=== PATIENT | male | born 1940 | race Caucasian/White ===

== ENCOUNTER 2022-09-15 21:17 | Inpatient (IN) | payer MEDICARE, SELFPAY ==
[2022-09-15 22:00] VITALS: BP 155/84; PULSE 107; RESP 18; TEMP 36.5; O2SAT 94; BMI 24.7
--- NOTE | 2022-09-15 22:11 | NURSING ---
Patient arrived to Unit at approximately 8:34pm
--- NOTE | 2022-09-16 03:47 | PCA ---
Patient called out for urinal and was changed. ang care completed and patient pulled up n bed
[2022-09-16] MEDS: ARIPiprazole 2 MG Tablet PO (05:08)
[2022-09-16] MEDS: Cholecalciferol (VIT D3) 25 MCG TABLET (1,000 UNITS) PO (05:09)
[2022-09-16] MEDS: Nystatin Powder 15gm Bottle 1 APPLIC TOPICAL ×2 (05:09→18:33)
[2022-09-16] MEDS: APIXABAN 5 MG TABLET PO ×2 (05:09→18:33)
[2022-09-16] MEDS: Lisinopril 20 MG Tablet PO (05:09)
[2022-09-16] MEDS: Menthol/Lanolin/Calamine/Znox 113 GM Tube 1 APPLIC TOPICAL ×2 (05:09→18:33)
--- NOTE | 2022-09-16 05:28 | NURSING ---
PICC line lumens flushed. Purple lumen flushed with some difficulty, blood return noted. Red lumen flushed easily, blood return noted. Will continue to monitor.
--- NOTE | 2022-09-16 06:04 | PCA ---
patient was changed @ 5:30 and used the urinal
[2022-09-16 06:06] LABS: Absolute Lymphocyte Count 1.96 X10^3/uL (0.83-4.51); Basophil# 0.08 X10^3/uL; Basophil% 0.9 % (0-1); Eosinophil# 0.29 X10^3/uL; Eosinophils% 3.2 % (0-5); Hematocrit 34.2 % (40-54); Hemoglobin 10.8 g/dL (13.0-16.5); Lymphocyte # 1.96 X10^3/ul (0.83-4.51); Lymphocyte % 21.5 % (19-41); Mean Corp Hgb Conc 31.6 g/dL (32-36); Mean Corpuscular Hgb 30.3 pg (27.0-32.0); Mean Corpuscular Volume 96.1 fL (80-94); Mean Platelet Vol. 8.6 fl (6.2-12.0); Monocyte# 0.79 X10^3/uL; Monocyte% 8.7 % (0-10); NRBC Flagged by Analyzer 0 % (0-5); Neutrophil # 5.95 X10^3/uL (2.7-7.7); Neutrophil % 65.3 % (47-70); Platelet Count 341 K/mm3 (150-450); RBC Distribution Width CV 14.2 % (11.6-14.6); RBC Distribution Width SD 49.7 fl (35.1-43.9); Red Blood Count 3.56 M/mm3 (4.6-6.2); White Blood Count 9.1 K/mm3 (4.4-11.0)
[2022-09-16 06:19] LABS: Erythrocyte Sedimentation Rate 48 mm/hr (0-20)
[2022-09-16 06:35] LABS: Vancomycin, Trough Level 16.6 ug/mL (5.0-15.0)
[2022-09-16 07:40] LABS: Anion Gap 6 (5-15); BUN 8 mg/dL (7-18); BUN/Creat Ratio 16.3 RATIO (10-20); Chloride 104 mmol/L (98-107); Creatinine, Serum 0.49 mg/dL (0.70-1.30); EST Glomerular Filtration Rate 173 mL/min (>60); Est Glom Filt Rate - Afr Amer 209 mL/min (>60); Estimated Creatinine Clearance 62.51 ml/min; Glucose 96 mg/dL (74-106); Potassium 3.6 mmol/L (3.5-5.1); Sodium Level 141 mmol/L (136-145)
--- NOTE | 2022-09-16 07:52 | HP.PCM_ITS ---
[facility] - General General Date of Admission: 09/15/22 Date of Service: 09/16/22 Chief Complaint: Here for rehabilitation, intravenous antibiotics. HPI Narrative DESIRE JONES, is a 82 Male who presents with followin09/04/2022 Admit to [facility] for change in mental status, urinary tract infection. Diagnosed with MRSA bacteremia, severe L3-L5 canal stenosis. Osteomyelitis/discitis, right psoas/iliopsoas myositis. ID recommended CACHORRO. Echo negative for vegetation, CACHORRO too high risk secondary to severe muscle dystrophy. Vancomycin IV per ID. Neurosurgery recommended no surgery. Continue IV antibiotics per ID. Mycoplasma negative, Respiratory panel negative, covid19 negative, flu A/B negative, RSV negative, MRSA PCR negative. 09/06/2025 Blood cultures positive MRSA. 09/07/2021 Blood cultures negative to date. PICC line ordered, Vancomycin 2gm IV Q24H x 6 weeks. 09/08/2022 MRI brain pending acute toxic encephalopathy. 09/10/2022 Confusion improved. 09/13/2022 Confusion resolved. 09/14/2022 PICC line with superficial vein thrombosis. New PICC inserted. 09/16/2022 Admit to TCU with debility, here for rehabilitation, intravenous antibiotics, prior to discharge home. [facility] Medical History (Updated 09/16/22 @ 07:[address] Rosendo Rebolledo MD) Alzheimer disease Debility Encephalopathy Hyperlipidemia Hypertension Lumbar discitis MRSA bacteremia Muscular dystrophy Pulmonary embolism Sepsis Thrombocytopenia Allergy/AdvReac Type Severity Reaction Status Date / Time No Known Allergies Allergy Verified 09/15/22 21:45 Social History (Updated 09/16/22 @ 07:[address] Rosendo Rebolledo MD) household members: spouse Smoking Status: Former smoker alcohol intake: never substance use type: does not use ROS Constitutional Constitutional: Denies chills, fever(s) or weight gain ENT HEENT: Denies headache(s), nasal congestion or nasal discharge Cardiovascular Cardiovascular: Denies chest pain or palpitations Respiratory/Chest Respiratory/Chest: Denies cough, excessive phlegm production or shortness of breath with exertion Gastrointestinal Gastrointestinal: Denies abdominal pain, nausea or vomiting Genitourinary Genitourinary: Denies dysuria Musculoskeletal Musculoskeletal: Denies joint pain or joint swelling Integumentary Integumentary: Denies rash or wounds Neurologic Neurologic: Denies focal weakness, numbness or tingling Psychiatric Psychiatric: Denies anxiety, auditory hallucinations, depression, homicidal ideation or suicidal ideation Vital Signs Vital Signs Vital Signs: 09/15/22 22:00 09/15/22 22:00 Temperature 97.7 F L Temperature Source Oral Pulse Rate 107 H 107 H Pulse Rhythm Regular Pulse Strength Normal (2+) Respiratory Rate 18 18 Respiratory Effort Normal Non-Labored Respiratory Depth Normal Respiratory Pattern Normal Blood Pressure 155/84 H Blood Pressure Mean 107 Blood Pressure Source Monitor Blood Pressure Position Supine Blood Pressure Location Left Arm Pulse Ox 94 94 Oxygen Delivery Method Room Air Room Air Weight Weight: 82.8 kg Body Mass Index (BMI) 24.7 Physical Exam Const alert General Appearance: cooperative HEENT normocephalic Eyes PERRL and EOMs intact bilaterally Neck supple, no JVD and no carotid bruits Resp normal respiratory effort, normal air movement and clear to auscultation bilaterally Cardio regular rate and regular rhythm GI normal to inspection, nondistended, normoactive bowel sounds, non-tender and non-distended Extremity normal capillary refill Extremity Narrative: Right upper extremity PICC line. General Extremity: Negative for edema Skin no rashes or lesions noted General Skin Exam: no breakdown Psych affect normal Appearance: appropriate Results Lab / Micro Data Result Diagrams: 09/16/22 05:30 09/16/22 05:30 Labs: Laboratory Results - last 24 hr 09/16/22 05:30: WBC 9.1, RBC 3.56 L, Hgb 10.8 L, Hct 34.2 L, MCV 96.1 H, MCH 30.3, MCHC 31.6 L, RDW Std Deviation 49.7 H, RDW Coeff of Berny 14.2, Plt Count 341, MPV 8.6, Immature Gran % (Auto) 0.400, Neut % (Auto) 65.3, Lymph % (Auto) 21.5, Butts % (Auto) 8.7, Eos % (Auto) 3.2, Baso % (Auto) 0.9, Absolute Neuts (auto) 6.0, Absolute Lymphs (auto) 1.96, Nucleated RBC % 0, ESR 48 H 09/16/22 05:30: Sodium 141, Potassium 3.6, Chloride 104, Carbon Dioxide 31.0, Anion Gap 6, BUN 8, Creatinine 0.49 L, Estim Creat Clear Calc 62.51, Est GFR (MDRD) Af Amer 209, Est GFR (MDRD) Non-Af 173, BUN/Creatinine Ratio 16.3, Glucose 96, Calcium 8.0 L 09/16/22 05:30: Vancomycin Trough 16.6 H Micro: Microbiology 09/16/22 02:40 Nasal Secretion SARS-CoV-2 Antigen (Rapid) - Final Assessment & Plan Assessment/Plan (1) Debility: (2) Sepsis: (3) MRSA bacteremia: (4) Lumbar discitis: (5) Encephalopathy: (6) Muscular dystrophy: (7) Alzheimer disease: (8) Hypertension: (9) Hyperlipidemia: (10) Pulmonary embolism: (11) Thrombocytopenia: PLAN: Plan 82 year old male with below past medical history hospitalized for sepsis, MRSA bacteremia secondary to lumbar discitis, surgery not recommended, admitted to TCU with debility, here for rehabilitation, strengthening, intravenous antibiotics, prior to discharge home. * Debility - PT/OT. * Pain - Tylenol 1000mg q6h prn pain (1-10). * Bowel - senna/colace 2 tablets bid, Dulcolax 10mg pr x 1 prn, MOM 30ml po x 1 prn. * Adult immunization - Administer pneumonia vaccine, covid19 vaccine, flu vaccine as appropriate. * DVT prophylaxis - Not necessary, on Eliquis. * Superficial vein thrombosis - Eliquis 5mg bid. * Alzheimer Disease - Donepezil 10mg qhs, Abilify 2mg daily, stable chronic twisting frame fixer use, GDR not recommended. * Iron deficiency anemia - Iron sulfate 325mg every other day, Vitamin C 1000mg daily. * Hypertension - Lisinopril 20mg daily. * Insomnia - Melatonin 3mg qhs prn. * Skin irritation - Calmoseptine topical bid. * Nutrition - MVI daily. * Tinea Corporis - Nystatin powder topical bid. * Hyperlipidemia - [place] 3 1gm daily. * MRSA bacteremia/Lumbar discitis - Vancomycin 1500mg iv q24h, consult Dr. Sigala. * Vitamin D deficiency - D3 25mcg daily.
[2022-09-16] MEDS: Omega-3 Acid Ethyl Esters 1 GM Capsule PO (08:14)
[2022-09-16] MEDS: Multivitamins,Therapeutic Tablet 1 TABLET PO (08:14)
--- NOTE | 2022-09-16 08:42 | PCM.RX.CS ---
Consult Pharmacy has been consulted to manage selected antiobiotic: Vancomycin Type of Consult: New start Suspected Infection: Bacteremia Prior Doses of Antibiotics Received/Current Regimen: Last dose reported was 1500mg iv 0n 2.14.23 @0600 at another facility. Labs: Sodium 141 mmol/L (136-145) 09/16/22 05:30 Potassium 3.6 mmol/L (3.5-5.1) 09/16/22 05:30 Chloride 104 mmol/L (98-107) 09/16/22 05:30 Carbon Dioxide 31.0 mmol/L (21.0-32.0) 09/16/22 05:30 Anion Gap 6 (5-15) 09/16/22 05:30 BUN 8 mg/dL (7-18) 09/16/22 05:30 Creatinine 0.49 mg/dL (0.70-1.30) L 09/16/22 05:30 Est GFR (MDRD) Af Amer 209 mL/min (>60) 09/16/22 05:30 Est GFR (MDRD) Non-Af 173 mL/min (>60) 09/16/22 05:30 BUN/Creatinine Ratio 16.3 RATIO (10-20) 09/16/22 05:30 Glucose 96 mg/dL (74-106) 09/16/22 05:30 Vancomycin Trough 16.6 ug/mL (5.0-15.0) H 09/16/22 05:30 Microbiology: Microbiology 09/16/22 02:40 Nasal Secretion SARS-CoV-2 Antigen (Rapid) - Final Weight used for dosin.8 kg Estimated Creatinine Clearance: 73 ml/min Goal Trough: 15-20 mcg/mL Pharmacy Plan for Drug Dosing: Using an adjusted Cr of 0.9 based on age, CrCl was calculated to be ~73 ml/min. A random level was obtained this AM since patient was on vancomycin at another facility. Level was 16.6 and in therapeutic range. Will begin a dosing schedule of 1250mg iv q12h per policy. New trough level ordered for before 4th dose of new regimen. Pharmacy Service will continue to monitor and adjust dosing as required. Follow-Up Labs: Trough Vancomycin - 2.16.23 @2130 before 2200 dose
--- NOTE | 2022-09-16 09:13 | NURSING ---
dr dobson paged via answering service per dr mathew consult order.
[2022-09-16] MEDS: Senna/Docusate Sodium 1 Tablet 2 TABLET PO ×2 (09:25→18:33)
[2022-09-16] MEDS: Ascorbic Acid 500 MG Tablet 1000 MG PO (09:25)
[2022-09-16] MEDS: Tuberculin,Purif.prot.deriv. 50 TU/ML Vial 0.100000000000000006 ML ID (09:26)
[2022-09-16] MEDS: 0.9% Saline Lock 10 ML Syringe IV (09:27)
[2022-09-16 09:37] VITALS: PULSE 103; RESP 16; O2SAT 94
--- NOTE | 2022-09-16 09:42 | PCM.PN.DRR ---
TCU RX Drug Regimen Review Subjective: TCU Admission. 82 YOM presented to outside ER with change in mental status/UTI. Hospitalized for sepsis, MRSA bacteremia secondary to lumbar discitis, surgery not recommended. Admitted to TCU with debility for strengthening, IV antibiotics and rehabilitation. Objective: Allergies No Known Allergies Allergy (Verified 09/15/22 21:45) Current Medications Generic Name Dose Route Start Last Admin Trade Name Freq PRN Reason Stop Dose Admin Acetaminophen 1,000 mg 09/16/22 08:09 Acetaminophen 500 Mg Tablet PO Q6H PRN PRN Pain Score 1-10 Apixaban 5 mg 09/16/22 06:00 09/16/22 05:09 Apixaban 5 Mg Tablet PO 10/27/22 23:59 5 mg BID JOEY Administration Aripiprazole 2 mg 09/16/22 06:00 09/16/22 05:08 Aripiprazole 2 Mg Tablet PO 2 mg DAILY JOEY Administration Ascorbic Acid 1,000 mg 09/16/22 08:00 09/16/22 09:25 Ascorbic Acid 500 Mg Tablet PO 1,000 mg BREAKFAST JOEY Administration Bisacodyl 10 mg 09/16/22 08:08 Bisacodyl 10 Mg Suppository RC X1 PRN Constipation Calamine/Phenol 1 applic 09/16/22 06:00 09/16/22 05:09 Menthol/Lanolin/Calamine/Znox 113 Gm Tube TOPICAL 1 applic BID JOEY Administration Protocol Cholecalciferol 25 mcg 09/16/22 06:00 09/16/22 05:09 Cholecalciferol (Vit D3) 25 Mcg Tablet (1,000 Units) PO 25 mcg DAILY JOEY Administration Donepezil HCl 10 mg 09/16/22 22:00 Donepezil Hcl 10 Mg Tablet PO QHS JOEY Ferrous Sulfate 325 mg 09/17/22 08:00 Ferrous Sulfate 325 Mg Tablet PO QODAY@0800 JOEY Heparin Sodium (Beef Lung) 50 units 09/15/22 23:07 Heparin Pf Lock 10 Units/Ml 50 Units/5 Ml Syringe IV UD PRN PICC Line Heparin Flush Heparin Sodium (Beef Lung) 50 units 09/16/22 08:00 Heparin Pf Lock 10 Units/Ml 50 Units/5 Ml Syringe IV UD PRN PICC Line Heparin Flush Sodium Chloride 250 mls @ 15 mls/hr 09/16/22 04:41 IV .[id number] PRN Saline Flush Sodium Chloride 250 mls @ 15 mls/hr 09/16/22 04:41 IV .[id number] PRN Additional IVPB Infusion Vancomycin IV-PHARMACY TO DOSE 500 mls @ 250 mls/hr 09/16/22 08:11 1 each/ Sodium Chloride IV PRN PRN Rx to Dose Protocol Vancomycin HCl 1,250 mg/ 275 mls @ 167 mls/hr 09/16/22 10:00 Sodium Chloride IV Q12H JOEY Lisinopril 20 mg 09/16/22 06:00 09/16/22 05:09 Lisinopril 20 Mg Tablet PO 20 mg DAILY JOEY Administration Magnesium Hydroxide 30 ml 09/16/22 08:08 Magnesium Hydroxide 30 Ml Udc PO X1 PRN Constipation Melatonin 3 mg 09/15/22 22:05 Melatonin 3 Mg Tablet PO QHS PRN PRN INSOMNIA Multivitamins 1 tablet 09/16/22 08:00 09/16/22 08:14 Multivitamins,Therapeutic Tablet PO 1 tablet BREAKFAST JOEY Administration Nystatin 1 applic 09/16/22 06:00 09/16/22 05:09 Nystatin Powder 15gm Bottle TOPICAL 1 applic BID JOEY Administration Protocol [id number] Ethyl Esters 1 gm 09/16/22 08:00 09/16/22 08:14 [place]-3 Acid Ethyl Esters 1 Gm Capsule PO 1 gm DAILYCM JOEY Administration Senna/Docusate Sodium 2 tablet 09/16/22 08:15 09/16/22 09:25 Senna/Docusate Sodium 1 Tablet PO 2 tablet BID JOEY Administration Sodium Chloride 10 - 40 ml 09/15/22 23:07 09/16/22 09:27 0.9% Saline Lock 10 Ml Syringe IV 20 ml UD PRN Administration Open End PICC Flush Sodium Chloride 10 - 40 ml 09/15/22 23:07 0.9 % Nacl (Sterile) Posiflush 10 Ml IV UD PRN Port access or dressing change Sodium Chloride 10 - 40 ml 09/16/22 08:00 0.9% Saline Lock 10 Ml Syringe IV UD PRN Open End PICC Flush Sodium Chloride 10 - 40 ml 09/16/22 08:00 0.9 % Nacl (Sterile) Posiflush 10 Ml IV UD PRN Port access or dressing change Tuberculin PPD 0.1 ml 09/16/22 10:00 09/16/22 09:26 Tuberculin,Purif.Prot.Deriv. 50 Tu/Ml Vial ID 09/16/22 10:01 0.1 ml X1 ONE Administration Tuberculin PPD 0.1 ml 09/23/22 10:00 Tuberculin,Purif.Prot.Deriv. 50 Tu/Ml Vial ID 09/23/22 10:01 X1 ONE Problem List (Last Updated 09/16/22 @ 07:[address] Rosendo Rebolledo MD) Thrombocytopenia (Acute) Pulmonary embolism (Acute) Hyperlipidemia (Acute) Hypertension (Chronic) Alzheimer disease (Acute) Muscular dystrophy (Acute) Encephalopathy (Acute) Lumbar discitis (Acute) MRSA bacteremia (Acute) Sepsis (Acute) Debility (Acute) Vital Signs Temp Pulse Resp BP Pulse Ox O2 Del Method 97.7 F L 107 H 18 155/84 H 94 Room Air 09/15/22 22:00 09/15/22 22:00 09/15/22 22:00 09/15/22 22:00 09/15/22 22:00 09/15/22 22:00 Oxygen Delivery Method Room Air Weight: 82.8 kg Body Mass Index (BMI) 24.7 Sodium 141 mmol/L (136-145) 09/16/22 05:30 Potassium 3.6 mmol/L (3.5-5.1) 09/16/22 05:30 Chloride 104 mmol/L (98-107) 09/16/22 05:30 Carbon Dioxide 31.0 mmol/L (21.0-32.0) 09/16/22 05:30 Anion Gap 6 (5-15) 09/16/22 05:30 BUN 8 mg/dL (7-18) 09/16/22 05:30 Creatinine 0.49 mg/dL (0.70-1.30) L 09/16/22 05:30 Est GFR (MDRD) Af Amer 209 mL/min (>60) 09/16/22 05:30 Est GFR (MDRD) Non-Af 173 mL/min (>60) 09/16/22 05:30 BUN/Creatinine Ratio 16.3 RATIO (10-20) 09/16/22 05:30 Glucose 96 mg/dL (74-106) 09/16/22 05:30 Vancomycin Trough 16.6 ug/mL (5.0-15.0) H 09/16/22 05:30 Assessment/Plan: 1. Pain: acetaminophen 1000mg PO Q6H PRN pain 1-10. Resident has not had any doses so far. Please continue to monitor for increased pain and PRN usage. 2. Bowel: senna/docusate 2T PO BID, bisacodyl 10mg RC x1 PRN constipation and MOM 30mL PO x1 PRN constipation. Resident has not had any PRN doses. Please continue to monitor for constipation and PRN usage. Last documented BM 09/16. 3. MRSA bacteremia/lumbar discitis: vancomycin pharmacy to dose. ID consulted. Please continue to monitor for S/S of infection, renal function and diarrhea. Pharmacy will continue to monitor vancomycin levels and renal function. Please consider adding stop date after ID has seen the resident. 4. Superficial vein thrombosis: apixaban 5mg PO BID. Please continue to monitor for S/S of bleeding and hemoglobin (last 10.8g/dL). 5. Iron deficiency anemia: ferrous sulfate 325mg PO every other day and ascorbic acid 1000mg PO breakfast. Please continue to monitor hemoglobin, dark stools and constipation. 6. Hypertension: lisinopril 20mg PO daily. Please continue to monitor BP (last 155/84), potassium (last 3.6mmol/L), renal function and cough. 7. Hyperlipidemia: omega 3 1gm PO daily. Please consider ordering a lipid panel if clinically appropriate as this resident does not have one in the chart. Thanks. 8. Insomnia: melatonin 3mg PO QHS PRN insomnia. Please continue to monitor for insomnia and PRN usage. No doses given so far. 9. Vitamin D deficiency/nutrition: cholecalciferol 25mcg PO daily and multivitamin 1T PO breakfast. Please consider ordering a vitamin D level if clinically appropriate. Resident does not have one in the chart. Thanks. Assessment/Plan for indications treated with psychotropic medications: 1. Alzheimer disease: donepezil 10mg PO QHS, aripiprazole 2mg PO daily. Please see physician note regarding GDR for aripiprazole. Please continue to monitor for dementia/delirium (black box warning/BEERs criteria), falls/fractures (BEERs criteria), somnolence, and GI side effects. Medical chart and medication regimen reviewed. The following medication irregularities or issues were identified: *1. [place] 3 1gm PO daily. Please consider ordering a lipid panel if clinically appropriate as this resident does not have one in the chart. Thanks. *2. Cholecalciferol 25mcg PO daily. Please consider ordering a vitamin D level if clinically appropriate. Resident does not have one in the chart. Thanks. *3. Vancomycin pharmacy to dose. ID consulted. Please consider adding stop date after ID has seen the resident. Thanks. Date of Note:: 09/16/22
--- NOTE | 2022-09-16 12:36 | NURSING ---
[employer] Apprentice Note; Activity Asset: Complete Klaus will need 1.1 visits for extra social, physical and mental well-being. He is able to express very little do to his medical cognition. Klaus was able to tell me he was in the [employer] and he likes to read. I will give him the daily to read and have social visit 3x weekly.
--- NOTE | 2022-09-16 13:16 | CON.PCM.ID_ITS ---
Assessment & Plan Assessment/Plan (1) MRSA bacteremia: PLAN: Reviewed [facility] records. Bcx cleared 09/07/22. Plan is for 6 weeks iv vanc, stop date 10/19/22 with weekly labs. Plan was for repeat TTE in 2 weeks, repeat CT abd/pelvis with iv contrast in 2 weeks, and lumbar MRI w/wo contrast in 5 weeks. Will follow, thank you (2) Lumbar discitis: HPI Consult Data Date of Consult: 09/16/22 HPI Narrative Reason for Consultation: MRSA osteo HPI Narrative: DESIRE JONES, is a 82 M with h/o Alzheimer disease, presented to [facility] 09/04 with back pain, fever, chills, confusion. Found to have MRSA bacteremia and L3-5 stenosis/osteo/discitis, R sided psoas myositis. Seen by spine surgery, no procedure done. Abx managed by ID, picc placed after bcx cleared 09/07/22. Had poor quality TTE while there. Now transferred to TCU, feeling about the same, back pain not improved. Full ROS performed and neg except as noted above. [facility] Medical History Alzheimer disease Debility Encephalopathy Hyperlipidemia Hypertension Lumbar discitis MRSA bacteremia Muscular dystrophy Pulmonary embolism Sepsis Thrombocytopenia Allergy/AdvReac Type Severity Reaction Status Date / Time No Known Allergies Allergy Verified 09/15/22 21:45 Social History (Updated 09/16/22 @ 07:[address] Rosendo Rebolledo MD) household members: spouse Smoking Status: Former smoker alcohol intake: never substance use type: does not use Physical Exam Const alert and no apparent distress General Appearance: cooperative HEENT normocephalic and head/scalp atraumatic Eyes PERRL and EOMs intact bilaterally Neck supple and No nodes Resp normal air movement and clear to auscultation bilaterally Cardio regular rate and regular rhythm GI soft to palpation, non-tender and non-distended Extremity General Extremity: Negative for edema Skin no rashes or lesions noted Skin Narrative: picc in RUE Neuro CN's II-XII intact bilaterally Lab / Micro Data Attestation: I reviewed the patient's lab results. Result Diagrams: 09/16/22 05:30 09/16/22 05:30 Labs: Laboratory Results - last 24 hr 09/16/22 05:30: WBC 9.1, RBC 3.56 L, Hgb 10.8 L, Hct 34.2 L, MCV 96.1 H, MCH 30.3, MCHC 31.6 L, RDW Std Deviation 49.7 H, RDW Coeff of Berny 14.2, Plt Count 341, MPV 8.6, Immature Gran % (Auto) 0.400, Neut % (Auto) 65.3, Lymph % (Auto) 21.5, [place] % (Auto) 8.7, Eos % (Auto) 3.2, Baso % (Auto) 0.9, Absolute Neuts (auto) 6.0, Absolute Lymphs (auto) 1.96, Nucleated RBC % 0, ESR 48 H 09/16/22 05:30: Sodium 141, Potassium 3.6, Chloride 104, Carbon Dioxide 31.0, Anion Gap 6, BUN 8, Creatinine 0.49 L, Estim Creat Clear Calc 62.51, Est GFR (MDRD) Af Amer 209, Est GFR (MDRD) Non-Af 173, BUN/Creatinine Ratio 16.3, Glucose 96, Calcium 8.0 L 09/16/22 05:30: Vancomycin Trough 16.6 H Micro: Microbiology 09/16/22 02:40 Nasal Secretion SARS-CoV-2 Antigen (Rapid) - Final
--- NOTE | 2022-09-16 15:29 | CASEMGMT ---
Social Work Met with patient to complete initial assessment. Son, Devon, and caregiver, Yadira, were present. Introduced self and role. Pt fell asleep after introduction. Son and caregiver participated in assessment questions. Caregiver reports she would assist pt with a bed bath for his morning routine, assist with dressing, then pt would use platform walker to ambulate about 50 ft to dining room for breakfast. Pt could mostly feed himself, but sometimes needed assistance. Pt would then ambulate another 50 ft to lift chair in living room, where he remained until hospice arrived around lunch time. Caregiver would return for dinner time and bedtime routine. Pt could voice wishes clearly and make decisions. is home with pt during the day but cannot physically assist. Pt was active with [facility] prior. Son expressed some dissatisfaction with hospice and interested in other companies or palliative services. SW educated to differences between both services and offered list of other hospice providers. Son agreed and appreciative. SW confirmed code status with son, DNR-CCA, no intubation. MOLST not complete as pt was not awake nor could sign. Son presented to this worker's office. SW provided hospice provider list. Answered further questions for son. Son concerned about insurance and care pt will need at home. Son lives in [facility] [place] and will be returning tomorrow 09/17. Then brother, Bunny and his Trupti, will arrive 09/18 from [place]. Son would like the Dr's opinion on hospice vs palliative at [place]. SW agreed recommendations from IDT will be made closer to [place], and also the decision will be given to the pt. Pt has IV ATB through 10/19. The goal is to remain in TCU until then. SW educated to Medicare benefit until 09/30, then [facility] will become primary. Educated to continued stay reviews. Son inquired about other options if pt cannot return home. Educated to appealing insurance decision, private pay TCU or private pay at another SNF. SW commended son for asking questions, gathering information and planning ahead. Offered after IDT is able to work with pt, at [facility] mtg next week, better recommendations can be provided to son. Son appreciative of time and information from this worker. SW to continue to follow. Justine Chun, INTERVENTIONIST [employer]
[2022-09-16 16:00] VITALS: BP 161/62; PULSE 84; RESP 16; TEMP 37.1; O2SAT 92
[2022-09-16] MEDS: Donepezil HCl 10 MG Tablet PO (21:24)
[2022-09-16] MEDS: Pneumococcal Vaccine 20 Valent 0.5 ML Syringe IM (21:27)
[2022-09-17] MEDS: APIXABAN 5 MG TABLET PO ×2 (06:22→17:27)
[2022-09-17] MEDS: Lisinopril 20 MG Tablet PO (06:22)
[2022-09-17] MEDS: Menthol/Lanolin/Calamine/Znox 113 GM Tube 1 APPLIC TOPICAL ×2 (06:22→17:27)
[2022-09-17] MEDS: Cholecalciferol (VIT D3) 25 MCG TABLET (1,000 UNITS) PO (06:22)
[2022-09-17] MEDS: ARIPiprazole 2 MG Tablet PO (06:22)
[2022-09-17] MEDS: Nystatin Powder 15gm Bottle 1 APPLIC TOPICAL ×2 (06:22→17:27)
[2022-09-17] MEDS: Senna/Docusate Sodium 1 Tablet 2 TABLET PO ×2 (06:22→17:27)
[2022-09-17] MEDS: Ferrous Sulfate 325 MG Tablet PO (08:02)
[2022-09-17] MEDS: Ascorbic Acid 500 MG Tablet 1000 MG PO (08:02)
[2022-09-17] MEDS: Multivitamins,Therapeutic Tablet 1 TABLET PO (08:02)
[2022-09-17] MEDS: 0.9% Saline Lock 10 ML Syringe IV (09:55)
[2022-09-17] MEDS: Acetaminophen 500 MG Tablet 1000 MG PO ×2 (10:39→21:24)
[2022-09-17 15:40] VITALS: BP 138/72; PULSE 88; RESP 16; TEMP 36.4; O2SAT 97
[2022-09-17 20:00] VITALS: PULSE 95; RESP 16; O2SAT 97
[2022-09-17] MEDS: Donepezil HCl 10 MG Tablet PO (21:24)
[2022-09-17 22:12] LABS: Vancomycin, Trough Level 24.3 ug/mL (5.0-15.0)
--- NOTE | 2022-09-17 22:24 | NURSING ---
spoke with pharmacist (Refugio) regarding vanc trough result, per Refugio hold 2200 dose vanco
--- NOTE | 2022-09-17 22:34 | PCM.RX.CS ---
Consult Pharmacy has been consulted to manage selected antiobiotic: Vancomycin Type of Consult: Follow-up Suspected Infection: Bacteremia Prior Doses of Antibiotics Received/Current Regimen: Medications Discontinued Medications Vancomycin HCl 1,250 mg/ (Sodium Chloride) 275 mls @ 167 mls/hr IV Q12H JOEY Last Admin: 09/17/22 12:00 Dose: Infused Labs: Sodium 141 mmol/L (136-145) 09/16/22 05:30 Potassium 3.6 mmol/L (3.5-5.1) 09/16/22 05:30 Chloride 104 mmol/L (98-107) 09/16/22 05:30 Carbon Dioxide 31.0 mmol/L (21.0-32.0) 09/16/22 05:30 Anion Gap 6 (5-15) 09/16/22 05:30 BUN 8 mg/dL (7-18) 09/16/22 05:30 Creatinine 0.49 mg/dL (0.70-1.30) L 09/16/22 05:30 Est GFR (MDRD) Af Amer 209 mL/min (>60) 09/16/22 05:30 Est GFR (MDRD) Non-Af 173 mL/min (>60) 09/16/22 05:30 BUN/Creatinine Ratio 16.3 RATIO (10-20) 09/16/22 05:30 Glucose 96 mg/dL (74-106) 09/16/22 05:30 Vancomycin Trough 24.3 ug/mL (5.0-15.0) H 09/17/22 21:11 Microbiology: Microbiology 09/17/22 06:30 Nasal Secretion SARS-CoV-2 Antigen (Rapid) - Final 09/16/22 02:40 Nasal Secretion SARS-CoV-2 Antigen (Rapid) - Final Weight used for dosin.8 kg Estimated Creatinine Clearance: 73 Goal Trough: 15-20 mcg/mL Pharmacy Plan for Drug Dosing: Vancomycin trough level, drawn 11.3 hours post-dose, was high at 24.3. Will hold current dosing, and draw another vanco level in 12 hours. Further dosing will be determined from that result. Pharmacy Service will continue to monitor and adjust dosing as required. Follow-Up Labs: Trough Vancomycin - random Labs to be done on [date and time ordered]: 09/18/22 @[id number]
[2022-09-18] MEDS: 0.9% Saline Lock 10 ML Syringe IV (05:40)
[2022-09-18] MEDS: Menthol/Lanolin/Calamine/Znox 113 GM Tube 1 APPLIC TOPICAL ×2 (05:43→17:22)
[2022-09-18] MEDS: Nystatin Powder 15gm Bottle 1 APPLIC TOPICAL ×2 (05:43→17:23)
[2022-09-18] MEDS: Cholecalciferol (VIT D3) 25 MCG TABLET (1,000 UNITS) PO (05:43)
[2022-09-18] MEDS: Lisinopril 20 MG Tablet PO (05:43)
[2022-09-18] MEDS: ARIPiprazole 2 MG Tablet PO (05:43)
[2022-09-18] MEDS: APIXABAN 5 MG TABLET PO ×2 (05:44→17:22)
[2022-09-18] MEDS: Senna/Docusate Sodium 1 Tablet 2 TABLET PO ×2 (05:44→17:21)
[2022-09-18] MEDS: Acetaminophen 500 MG Tablet 1000 MG PO ×3 (05:44→21:58)
[2022-09-18] MEDS: Multivitamins,Therapeutic Tablet 1 TABLET PO (08:57)
[2022-09-18] MEDS: Ascorbic Acid 500 MG Tablet 1000 MG PO (08:57)
[2022-09-18] MEDS: traMADol 50 MG Tablet PO (09:05)
[2022-09-18 10:09] LABS: Vancomycin, Random Level 18.7 ug/mL (0.0-15.0)
[2022-09-18 10:55] VITALS: PULSE 86; RESP 18; O2SAT 98
[2022-09-18 12:12] LABS: Creatinine, Serum 0.66 mg/dL (0.70-1.30); EST Glomerular Filtration Rate 122 mL/min (>60); Est Glom Filt Rate - Afr Amer 148 mL/min (>60); Estimated Creatinine Clearance 62.51 ml/min
[2022-09-18] MEDS: oxyCODONE 5 MG Tablet 2.5 MG PO ×2 (13:27→20:16)
--- NOTE | 2022-09-18 14:51 | PCM.RX.CS ---
Consult Pharmacy has been consulted to manage selected antiobiotic: Vancomycin Type of Consult: Follow-up Prior Doses of Antibiotics Received/Current Regimen: the vanc dose had been 1250mg IV q12h until that was held due to a high trough Labs: Sodium 141 mmol/L (136-145) 09/16/22 05:30 Potassium 3.6 mmol/L (3.5-5.1) 09/16/22 05:30 Chloride 104 mmol/L (98-107) 09/16/22 05:30 Carbon Dioxide 31.0 mmol/L (21.0-32.0) 09/16/22 05:30 Anion Gap 6 (5-15) 09/16/22 05:30 BUN 8 mg/dL (7-18) 09/16/22 05:30 Creatinine 0.66 mg/dL (0.70-1.30) L 09/18/22 09:28 Est GFR (MDRD) Af Amer 148 mL/min (>60) 09/18/22 09:28 Est GFR (MDRD) Non-Af 122 mL/min (>60) 09/18/22 09:28 BUN/Creatinine Ratio 16.3 RATIO (10-20) 09/16/22 05:30 Glucose 96 mg/dL (74-106) 09/16/22 05:30 Vancomycin Trough 24.3 ug/mL (5.0-15.0) H 09/17/22 21:11 Random Vancomycin 18.7 ug/mL (0.0-15.0) H 09/18/22 09:28 Microbiology: Microbiology 09/17/22 06:30 Nasal Secretion SARS-CoV-2 Antigen (Rapid) - Final 09/16/22 02:40 Nasal Secretion SARS-CoV-2 Antigen (Rapid) - Final Weight used for dosin.8 kg Estimated Creatinine Clearance: 78ml/min Goal Trough: 15-20 mcg/mL Pharmacy Plan for Drug Dosing: The vanc random level drawn at 09:28 today (approx 24 hours after the last 1250mg dose) was 18.7. This is back below 20 so will restart dosing at a newly calculated dose of 1500mg IV q24h. Will order a trough before the 3rd dose. Pharmacy Service will continue to monitor and adjust dosing as required. Follow-Up Labs: Trough Vancomycin Labs to be done on [date and time ordered]: 09/20/22 13:30
[2022-09-18 15:05] VITALS: BP 141/67; PULSE 82; RESP 18; TEMP 36.3; O2SAT 98
[2022-09-18] MEDS: Donepezil HCl 10 MG Tablet PO (22:01)
[2022-09-19] MEDS: Nystatin Powder 15gm Bottle 1 APPLIC TOPICAL ×2 (06:28→17:11)
[2022-09-19] MEDS: Lisinopril 20 MG Tablet PO (06:28)
[2022-09-19] MEDS: Senna/Docusate Sodium 1 Tablet 2 TABLET PO ×2 (06:28→17:11)
[2022-09-19] MEDS: ARIPiprazole 2 MG Tablet PO (06:28)
[2022-09-19] MEDS: Menthol/Lanolin/Calamine/Znox 113 GM Tube 1 APPLIC TOPICAL ×2 (06:28→17:11)
[2022-09-19] MEDS: APIXABAN 5 MG TABLET PO ×2 (06:28→17:11)
[2022-09-19] MEDS: Cholecalciferol (VIT D3) 25 MCG TABLET (1,000 UNITS) PO (06:28)
[2022-09-19] MEDS: Acetaminophen 500 MG Tablet 1000 MG PO ×3 (06:30→20:34)
[2022-09-19] MEDS: Ascorbic Acid 500 MG Tablet 1000 MG PO (08:12)
[2022-09-19] MEDS: Multivitamins,Therapeutic Tablet 1 TABLET PO (08:12)
[2022-09-19] MEDS: Ferrous Sulfate 325 MG Tablet PO (08:12)
[2022-09-19] MEDS: traMADol 50 MG Tablet PO (08:13)
--- NOTE | 2022-09-19 11:23 | NURSING ---
pt daughter in law and son from [place] here and transferred pt from recliner chair to without staff assist. Educated and they just wanted to take pt downstairs. when pt back to room, they did get staff to assist pt from WC to bed. pt positioned on his Left side and heels off bed with pillows. call light in reach. oral care provided.
[2022-09-19] MEDS: oxyCODONE 5 MG Tablet 2.5 MG PO ×2 (12:22→17:13)
[2022-09-19] MEDS: 0.9% Saline Lock 10 ML Syringe IV (12:57)
[2022-09-19 16:00] VITALS: BP 135/57; PULSE 65; RESP 15; TEMP 36.4; O2SAT 96
[2022-09-19] MEDS: Donepezil HCl 10 MG Tablet PO (20:34)
[2022-09-20] MEDS: Nystatin Powder 15gm Bottle 1 APPLIC TOPICAL ×2 (06:04→18:35)
[2022-09-20] MEDS: Menthol/Lanolin/Calamine/Znox 113 GM Tube 1 APPLIC TOPICAL ×2 (06:04→18:35)
[2022-09-20] MEDS: Senna/Docusate Sodium 1 Tablet 2 TABLET PO ×2 (06:05→18:35)
[2022-09-20] MEDS: Acetaminophen 500 MG Tablet 1000 MG PO ×3 (06:05→22:57)
[2022-09-20] MEDS: ARIPiprazole 2 MG Tablet PO (06:05)
[2022-09-20] MEDS: Lisinopril 20 MG Tablet PO (06:05)
[2022-09-20] MEDS: APIXABAN 5 MG TABLET PO ×2 (06:06→18:35)
[2022-09-20] MEDS: Cholecalciferol (VIT D3) 25 MCG TABLET (1,000 UNITS) PO (06:06)
[2022-09-20 06:13] VITALS: BP 143/81; PULSE 102
[2022-09-20] MEDS: Ascorbic Acid 500 MG Tablet 1000 MG PO (08:29)
[2022-09-20] MEDS: Multivitamins,Therapeutic Tablet 1 TABLET PO (08:30)
[2022-09-20] MEDS: traMADol 50 MG Tablet PO (08:32)
[2022-09-20 09:27] VITALS: RESP 16
[2022-09-20 14:20] LABS: Vancomycin, Trough Level 15.9 ug/mL (5.0-15.0)
[2022-09-20] MEDS: 0.9% Saline Lock 10 ML Syringe IV (14:38)
--- NOTE | 2022-09-20 15:03 | NURSING ---
offered to get pt up in chair, pt refusing. repositioned on Lt side. pt incont of lg amt of urine, changed and then before leaving room pt stated i just pissed again . Incont care provided, new attends placed and hawk/nyst powder applied to irritated periarea. repositioned back on LT side, Rt arm elevated. Vanc infusing per order. soft touch call light attached to pt gown for easy touch. offered DR pepper that son and daughter in law left, pt drank 1/2 glass.
--- NOTE | 2022-09-20 15:39 | PCM.RX.CS ---
Consult Pharmacy has been consulted to manage selected antiobiotic: Vancomycin Type of Consult: Follow-up Prior Doses of Antibiotics Received/Current Regimen: Medications Vancomycin HCl 1,500 mg/ (Sodium Chloride) 530 mls @ 250 mls/hr IV Q24H JOEY Last Admin: 09/20/22 14:38 Dose: 250 mls/hr Labs: Sodium 141 mmol/L (136-145) 09/16/22 05:30 Potassium 3.6 mmol/L (3.5-5.1) 09/16/22 05:30 Chloride 104 mmol/L (98-107) 09/16/22 05:30 Carbon Dioxide 31.0 mmol/L (21.0-32.0) 09/16/22 05:30 Anion Gap 6 (5-15) 09/16/22 05:30 BUN 8 mg/dL (7-18) 09/16/22 05:30 Creatinine 0.66 mg/dL (0.70-1.30) L 09/18/22 09:28 Est GFR (MDRD) Af Amer 148 mL/min (>60) 09/18/22 09:28 Est GFR (MDRD) Non-Af 122 mL/min (>60) 09/18/22 09:28 BUN/Creatinine Ratio 16.3 RATIO (10-20) 09/16/22 05:30 Glucose 96 mg/dL (74-106) 09/16/22 05:30 Vancomycin Trough 15.9 ug/mL (5.0-15.0) H 09/20/22 13:20 Random Vancomycin 18.7 ug/mL (0.0-15.0) H 09/18/22 09:28 Microbiology: Microbiology 09/19/22 08:10 Nasal Secretion SARS-CoV-2 Antigen (Rapid) - Final 09/17/22 06:30 Nasal Secretion SARS-CoV-2 Antigen (Rapid) - Final 09/16/22 02:40 Nasal Secretion SARS-CoV-2 Antigen (Rapid) - Final Weight used for dosin kg Goal Trough: 15-20 mcg/mL Pharmacy Plan for Drug Dosing: Trough in goal range. Recommend to continue and re-check in 2 days again. Consider a longer checking interval if in range again. Pharmacy Service will continue to monitor and adjust dosing as required. Follow-Up Labs: Trough Vancomycin - 09/22 @ 1330
[2022-09-20 16:00] VITALS: BP 151/79; PULSE 72; RESP 17; TEMP 36.6; O2SAT 96
--- NOTE | 2022-09-20 18:00 | NURSING ---
pt son and daughter in law (who states she is a nurse practitioner) here requesting that pt get up in recliner chair, but does not want the regan used. pt was able to stand pivot with x2 max assist to recliner chair. daughter in law feels that pt getting weak just laying around. pt sat up for supper meal with assist of family feeding him.
[2022-09-20] MEDS: Donepezil HCl 10 MG Tablet PO (22:56)
[2022-09-21 05:31] LABS: Absolute Lymphocyte Count 2.01 X10^3/uL (0.83-4.51); Absolute Neutrophil Count 4.7 X10^3/uL (2.0-7.7); Basophil% 1.3 % (0-1); Eosinophils% 3.8 % (0-5); Hematocrit 30.4 % (40-54); Hemoglobin 9.5 g/dL (13.0-16.5); Lymphocyte # 2.01 X10^3/ul (0.83-4.51); Lymphocyte % 25.7 % (19-41); Mean Corp Hgb Conc 31.3 g/dL (32-36); Mean Corpuscular Volume 95.9 fL (80-94); Mean Platelet Vol. 8.7 fl (6.2-12.0); Monocyte# 0.69 X10^3/uL; Monocyte% 8.8 % (0-10); NRBC Flagged by Analyzer 0 % (0-5); Platelet Count 303 K/mm3 (150-450); RBC Distribution Width CV 14.2 % (11.6-14.6); RBC Distribution Width SD 50.3 fl (35.1-43.9); Red Blood Count 3.17 M/mm3 (4.6-6.2); White Blood Count 7.8 K/mm3 (4.4-11.0)
[2022-09-21 05:59] LABS: ALB/GLOB Ratio 0.4 RATIO (0.9-2.4); AST(SGOT) 27 U/L (15-37); Alanine Aminotransfer ALT/SGPT 30 U/L (16-61); Albumin, Serum 1.8 g/dL (3.2-5.0); Alkaline Phosphatase 159 U/L (45-117); Anion Gap 4 (5-15); BUN 11 mg/dL (7-18); BUN/Creat Ratio 22.9 RATIO (10-20); Chloride 103 mmol/L (98-107); Creatinine, Serum 0.48 mg/dL (0.70-1.30); EST Glomerular Filtration Rate 177 mL/min (>60); Est Glom Filt Rate - Afr Amer 214 mL/min (>60); Estimated Creatinine Clearance 62.51 ml/min; Globulin 4.3 g/dL (2.2-4.2); Glucose 83 mg/dL (74-106); Potassium 3.8 mmol/L (3.5-5.1); Protein, Total 6.1 g/dL (6.4-8.2); Sodium Level 138 mmol/L (136-145)
[2022-09-21] MEDS: Acetaminophen 500 MG Tablet 1000 MG PO ×3 (06:17→21:11)
[2022-09-21] MEDS: Lisinopril 20 MG Tablet PO (06:18)
[2022-09-21] MEDS: Cholecalciferol (VIT D3) 25 MCG TABLET (1,000 UNITS) PO (06:18)
[2022-09-21] MEDS: Senna/Docusate Sodium 1 Tablet 2 TABLET PO ×2 (06:18→17:02)
[2022-09-21] MEDS: ARIPiprazole 2 MG Tablet PO (06:18)
[2022-09-21] MEDS: Nystatin Powder 15gm Bottle 1 APPLIC TOPICAL ×2 (06:19→17:03)
[2022-09-21] MEDS: APIXABAN 5 MG TABLET PO ×2 (06:19→17:01)
[2022-09-21] MEDS: Menthol/Lanolin/Calamine/Znox 113 GM Tube 1 APPLIC TOPICAL ×2 (06:23→17:03)
[2022-09-21] MEDS: 0.9% Saline Lock 10 ML Syringe IV (06:23)
[2022-09-21 06:32] LABS: Erythrocyte Sedimentation Rate 55 mm/hr (0-20)
[2022-09-21 07:49] VITALS: BP 132/69; PULSE 89
[2022-09-21] MEDS: Multivitamins,Therapeutic Tablet 1 TABLET PO (09:04)
[2022-09-21] MEDS: Ascorbic Acid 500 MG Tablet 1000 MG PO (09:04)
[2022-09-21] MEDS: Ferrous Sulfate 325 MG Tablet PO (09:04)
--- NOTE | 2022-09-21 10:12 | NURSING ---
Refused Covid booster and educated and provided education pamphlet as well.
[2022-09-21] MEDS: traMADol 50 MG Tablet PO (11:54)
[2022-09-21 15:24] VITALS: BP 141/72; PULSE 69; RESP 16; TEMP 36.3; O2SAT 97
--- NOTE | 2022-09-21 15:34 | CASEMGMT ---
Social Work BIMS (08/16) and PHQ-9 (08/28, but had no response to some questions). Staff assessment completed for MDS. OKSANA HammondW
[2022-09-21 20:13] VITALS: PULSE 90; RESP 16; O2SAT 96
[2022-09-21] MEDS: Donepezil HCl 10 MG Tablet PO (21:11)
[2022-09-22] MEDS: 0.9% Saline Lock 10 ML Syringe IV ×2 (05:17→15:08)
[2022-09-22] MEDS: APIXABAN 5 MG TABLET PO ×2 (05:21→17:36)
[2022-09-22] MEDS: Lisinopril 20 MG Tablet PO (05:21)
[2022-09-22] MEDS: Cholecalciferol (VIT D3) 25 MCG TABLET (1,000 UNITS) PO (05:21)
[2022-09-22] MEDS: ARIPiprazole 2 MG Tablet PO (05:21)
[2022-09-22] MEDS: Acetaminophen 500 MG Tablet 1000 MG PO ×3 (05:25→21:06)
[2022-09-22] MEDS: Menthol/Lanolin/Calamine/Znox 113 GM Tube 1 APPLIC TOPICAL ×2 (05:30→17:40)
[2022-09-22] MEDS: Nystatin Powder 15gm Bottle 1 APPLIC TOPICAL ×2 (05:30→17:40)
[2022-09-22 05:45] LABS: Hemoglobin 9.9 g/dL (13.0-16.5)
[2022-09-22 08:00] VITALS: BMI 25.2
[2022-09-22] MEDS: Ascorbic Acid 500 MG Tablet 1000 MG PO (08:08)
[2022-09-22] MEDS: Iron Polysaccharide Complex 150 MG CAPSULE PO (08:08)
[2022-09-22] MEDS: Multivitamins,Therapeutic Tablet 1 TABLET PO (08:09)
[2022-09-22 08:50] VITALS: PULSE 67; RESP 16; O2SAT 94
[2022-09-22] MEDS: traMADol 50 MG Tablet PO (10:49)
[2022-09-22 14:08] LABS: Vancomycin, Trough Level 15.9 ug/mL (5.0-15.0)
--- NOTE | 2022-09-22 14:46 | PCM.RX.CS ---
Consult Type of Consult: Follow-up Labs: Sodium 138 mmol/L (136-145) 09/21/22 05:12 Potassium 3.8 mmol/L (3.5-5.1) 09/21/22 05:12 Chloride 103 mmol/L (98-107) 09/21/22 05:12 Carbon Dioxide 31.0 mmol/L (21.0-32.0) 09/21/22 05:12 Anion Gap 4 (5-15) L 09/21/22 05:12 BUN 11 mg/dL (7-18) 09/21/22 05:12 Creatinine 0.48 mg/dL (0.70-1.30) L 09/21/22 05:12 Est GFR (MDRD) Af Amer 214 mL/min (>60) 09/21/22 05:12 Est GFR (MDRD) Non-Af 177 mL/min (>60) 09/21/22 05:12 BUN/Creatinine Ratio 22.9 RATIO (10-20) H 09/21/22 05:12 Glucose 83 mg/dL (74-106) 09/21/22 05:12 Vancomycin Trough 15.9 ug/mL (5.0-15.0) H 09/22/22 13:35 Random Vancomycin 18.7 ug/mL (0.0-15.0) H 09/18/22 09:28 Microbiology: Microbiology 09/19/22 08:10 Nasal Secretion SARS-CoV-2 Antigen (Rapid) - Final 09/17/22 06:30 Nasal Secretion SARS-CoV-2 Antigen (Rapid) - Final 09/16/22 02:40 Nasal Secretion SARS-CoV-2 Antigen (Rapid) - Final Goal Trough: 15-20 mcg/mL Pharmacy Plan for Drug Dosing: VANCOMYCIN LEVEL RECEIVED Current Vancomycin Dose: 1500mg IV Q24h Number of Doses Received: 4 Vancomycin Level: 18.7 Hours Since Last Dose: 23.5hr Renal Function: 0.48 Renal Function Trend: stable Vancomycin Plan/Comments: Patient had a trough drawn which resulted in a value of 18.7 (goal 15-20). Patient is within trough goal. Continue current dose and recheck a trough in 2 days. Pending Level: 09/24/22 @1330 Pharmacy Service will continue to monitor and adjust dosing as required.
[2022-09-22 16:00] VITALS: BP 129/72; PULSE 61; RESP 16; TEMP 36.4; O2SAT 95
[2022-09-22] MEDS: Senna/Docusate Sodium 1 Tablet 2 TABLET PO (17:36)
[2022-09-22] MEDS: Donepezil HCl 10 MG Tablet PO (21:06)
--- NOTE | 2022-09-23 02:12 | NURSING ---
Patient awake, wanting to get up, stating he could stand. Patient is currently a regan lift for transfers. Attempts to redirect and explain that staff was not able to stand him up were unsuccessful and patient became agitated and wanted 9-1-1 called. Yelled at staff, making derogatory remarks. Staff stepped away to de-escalate the situation. Will continue to monitor.
[2022-09-23] MEDS: Menthol/Lanolin/Calamine/Znox 113 GM Tube 1 APPLIC TOPICAL ×2 (05:27→18:17)
[2022-09-23] MEDS: Cholecalciferol (VIT D3) 25 MCG TABLET (1,000 UNITS) PO (05:27)
[2022-09-23] MEDS: ARIPiprazole 2 MG Tablet PO (05:27)
[2022-09-23] MEDS: Nystatin Powder 15gm Bottle 1 APPLIC TOPICAL ×2 (05:27→18:17)
[2022-09-23] MEDS: APIXABAN 5 MG TABLET PO ×2 (05:27→18:19)
[2022-09-23] MEDS: Lisinopril 20 MG Tablet PO (05:27)
[2022-09-23] MEDS: Acetaminophen 500 MG Tablet 1000 MG PO ×3 (05:31→22:26)
[2022-09-23] MEDS: 0.9% Saline Lock 10 ML Syringe IV ×2 (05:41→13:52)
[2022-09-23] MEDS: Multivitamins,Therapeutic Tablet 1 TABLET PO (08:35)
[2022-09-23] MEDS: Iron Polysaccharide Complex 150 MG CAPSULE PO (08:35)
[2022-09-23] MEDS: Ascorbic Acid 500 MG Tablet 1000 MG PO (08:35)
--- NOTE | 2022-09-23 10:31 | CASEMGMT ---
Social Work IDT met with patient and caregiver, then two son's and via conference call for care plan meeting. Discussed patient's progress in PT/OT/ST/SN. Educated to Medicare benefit until 09/30, then changes to [facility] insurance. Educated to review process with [facility]. Answered family questions. SW to continue to follow for DC planning. Justine Chun, OPTICAL MODEL MAKER AND TESTER CHIPPER FEEDER
[2022-09-23] MEDS: traMADol 50 MG Tablet PO (11:31)
[2022-09-23] MEDS: Tuberculin,Purif.prot.deriv. 50 TU/ML Vial 0.100000000000000006 ML ID (13:51)
[2022-09-23 16:00] VITALS: BP 120/72; PULSE 81; RESP 16; TEMP 36.8; O2SAT 94
[2022-09-23] MEDS: Senna/Docusate Sodium 1 Tablet 2 TABLET PO (18:18)
--- NOTE | 2022-09-23 18:24 | NURSING ---
updated family regarding doppler to be done on RT arm to check status of blood clot d/t edema.
[2022-09-23] MEDS: Donepezil HCl 10 MG Tablet PO (22:22)
[2022-09-23 23:00] VITALS: PULSE 80; RESP 20; O2SAT 93
[2022-09-24 05:30] VITALS: BP 131/78; PULSE 98
[2022-09-24] MEDS: Lisinopril 20 MG Tablet PO (05:41)
[2022-09-24] MEDS: APIXABAN 5 MG TABLET PO ×2 (05:41→17:15)
[2022-09-24] MEDS: Senna/Docusate Sodium 1 Tablet 2 TABLET PO ×2 (05:41→17:15)
[2022-09-24] MEDS: ARIPiprazole 2 MG Tablet PO (05:41)
[2022-09-24] MEDS: Menthol/Lanolin/Calamine/Znox 113 GM Tube 1 APPLIC TOPICAL ×2 (05:42→17:18)
[2022-09-24] MEDS: Nystatin Powder 15gm Bottle 1 APPLIC TOPICAL ×2 (05:42→17:18)
[2022-09-24] MEDS: Cholecalciferol (VIT D3) 25 MCG TABLET (1,000 UNITS) PO (05:42)
[2022-09-24 05:49] LABS: Absolute Lymphocyte Count 1.85 X10^3/uL (0.83-4.51); Absolute Neutrophil Count 4.1 X10^3/uL (2.0-7.7); Basophil# 0.11 X10^3/uL; Basophil% 1.5 % (0-1); Eosinophil# 0.35 X10^3/uL; Eosinophils% 4.8 % (0-5); Hematocrit 31.1 % (40-54); Hemoglobin 9.7 g/dL (13.0-16.5); Lymphocyte # 1.85 X10^3/ul (0.83-4.51); Lymphocyte % 25.6 % (19-41); Mean Corp Hgb Conc 31.2 g/dL (32-36); Mean Corpuscular Hgb 30.4 pg (27.0-32.0); Mean Corpuscular Volume 97.5 fL (80-94); Mean Platelet Vol. 8.6 fl (6.2-12.0); Monocyte% 11.1 % (0-10); NRBC Flagged by Analyzer 0 % (0-5); Neutrophil # 4.09 X10^3/uL (2.7-7.7); Neutrophil % 56.7 % (47-70); Platelet Count 307 K/mm3 (150-450); RBC Distribution Width CV 14.6 % (11.6-14.6); RBC Distribution Width SD 52.7 fl (35.1-43.9); Red Blood Count 3.19 M/mm3 (4.6-6.2); White Blood Count 7.2 K/mm3 (4.4-11.0)
[2022-09-24] MEDS: Acetaminophen 500 MG Tablet 1000 MG PO ×3 (05:50→22:30)
[2022-09-24 06:23] LABS: ALB/GLOB Ratio 0.5 RATIO (0.9-2.4); AST(SGOT) 29 U/L (15-37); Alanine Aminotransfer ALT/SGPT 31 U/L (16-61); Albumin, Serum 2.1 g/dL (3.2-5.0); Alkaline Phosphatase 171 U/L (45-117); Anion Gap 5 (5-15); BUN 9 mg/dL (7-18); BUN/Creat Ratio 15.8 RATIO (10-20); Calcium,Total 8.2 mg/dL (8.5-10.1); Chloride 104 mmol/L (98-107); Creatinine, Serum 0.57 mg/dL (0.70-1.30); EST Glomerular Filtration Rate 146 mL/min (>60); Est Glom Filt Rate - Afr Amer 177 mL/min (>60); Estimated Creatinine Clearance 62.51 ml/min; Globulin 4.5 g/dL (2.2-4.2); Glucose 89 mg/dL (74-106); Potassium 3.7 mmol/L (3.5-5.1); Protein, Total 6.6 g/dL (6.4-8.2); Sodium Level 141 mmol/L (136-145)
[2022-09-24] MEDS: Multivitamins,Therapeutic Tablet 1 TABLET PO (08:30)
[2022-09-24] MEDS: Ascorbic Acid 500 MG Tablet 1000 MG PO (08:30)
[2022-09-24] MEDS: Iron Polysaccharide Complex 150 MG CAPSULE PO (08:30)
[2022-09-24 13:51] LABS: Vancomycin, Trough Level 17.5 ug/mL (5.0-15.0)
--- NOTE | 2022-09-24 14:12 | PCM.RX.CS ---
Consult Pharmacy has been consulted to manage selected antiobiotic: Vancomycin Type of Consult: Follow-up Labs: Sodium 141 mmol/L (136-145) 09/24/22 05:26 Potassium 3.7 mmol/L (3.5-5.1) 09/24/22 05:26 Chloride 104 mmol/L (98-107) 09/24/22 05:26 Carbon Dioxide 32.0 mmol/L (21.0-32.0) 09/24/22 05:26 Anion Gap 5 (5-15) 09/24/22 05:26 BUN 9 mg/dL (7-18) 09/24/22 05:26 Creatinine 0.57 mg/dL (0.70-1.30) L 09/24/22 05:26 Est GFR (MDRD) Af Amer 177 mL/min (>60) 09/24/22 05:26 Est GFR (MDRD) Non-Af 146 mL/min (>60) 09/24/22 05:26 BUN/Creatinine Ratio 15.8 RATIO (10-20) 09/24/22 05:26 Glucose 89 mg/dL (74-106) 09/24/22 05:26 Vancomycin Trough 17.5 ug/mL (5.0-15.0) H 09/24/22 13:02 Random Vancomycin 18.7 ug/mL (0.0-15.0) H 09/18/22 09:28 Microbiology: Microbiology 09/19/22 08:10 Nasal Secretion SARS-CoV-2 Antigen (Rapid) - Final 09/17/22 06:30 Nasal Secretion SARS-CoV-2 Antigen (Rapid) - Final 09/16/22 02:40 Nasal Secretion SARS-CoV-2 Antigen (Rapid) - Final Goal Trough: 15-20 mcg/mL Pharmacy Plan for Drug Dosing: VANCOMYCIN LEVEL RECEIVED Current Vancomycin Dose: 1500MG IV Q24H Number of Doses Received: 6 doses Vancomycin Level: 17.5 Hours Since Last Dose: 23.75hr Renal Function: 0.57 Renal Function Trend: stable Lab/Micro: no new data Vancomycin Plan/Comments: The patient had a trough drawn which resulted in a value of 17.5 (goal 15-20). Will continue current dose for this patient. The patient has had 3 levels within therapeutic range, so will draw a trough in 4 days rather than 2. Should the patient have an acute change in condition, a trough will be drawn earlier. Pending Level: 09/28/22 @0006 Pharmacy Service will continue to monitor and adjust dosing as required.
[2022-09-24 15:15] VITALS: BP 151/74; PULSE 93; RESP 16; TEMP 37.1; O2SAT 93
[2022-09-24 15:15] LABS: Erythrocyte Sedimentation Rate 36 mm/hr (0-20)
[2022-09-24] MEDS: 0.9% Saline Lock 10 ML Syringe IV (22:19)
[2022-09-24] MEDS: Alteplase 2 MG/2 ML Vial IV (22:20)
[2022-09-24] MEDS: Donepezil HCl 10 MG Tablet PO (22:30)
[2022-09-25] MEDS: ARIPiprazole 2 MG Tablet PO (05:55)
[2022-09-25] MEDS: Lisinopril 20 MG Tablet PO (05:55)
[2022-09-25] MEDS: Senna/Docusate Sodium 1 Tablet 2 TABLET PO ×2 (05:55→17:31)
[2022-09-25] MEDS: Menthol/Lanolin/Calamine/Znox 113 GM Tube 1 APPLIC TOPICAL ×2 (05:55→17:30)
[2022-09-25] MEDS: Nystatin Powder 15gm Bottle 1 APPLIC TOPICAL ×2 (05:55→17:30)
[2022-09-25] MEDS: APIXABAN 5 MG TABLET PO ×2 (05:55→17:31)
[2022-09-25] MEDS: Cholecalciferol (VIT D3) 25 MCG TABLET (1,000 UNITS) PO (05:55)
[2022-09-25] MEDS: Acetaminophen 500 MG Tablet 1000 MG PO ×3 (06:00→21:29)
[2022-09-25 06:25] VITALS: BP 137/81; PULSE 94
[2022-09-25] MEDS: Iron Polysaccharide Complex 150 MG CAPSULE PO (07:57)
[2022-09-25] MEDS: Ascorbic Acid 500 MG Tablet 1000 MG PO (07:57)
[2022-09-25] MEDS: Multivitamins,Therapeutic Tablet 1 TABLET PO (07:57)
--- NOTE | 2022-09-25 08:00 | NURSING ---
wrapped RT arm from fingers to elbow light compression, elevated on 2 pillows. pt resting in bed call light in reach. SKIN PILER assisting pt with meal
[2022-09-25] MEDS: traMADol 50 MG Tablet PO (08:03)
--- NOTE | 2022-09-25 11:14 | CASEMGMT ---
Social Work Received phone call from Trupti BECK, requesting information on how to drop [facility] plan and remain with traditional [facility], per 's request. SW provided email link from [email or web address] explaining process. SW answered questions. EBONY to proceed with change and notify this worker when completed. NANCY to continue to follow. OKSANA HammondW
[2022-09-25 15:00] VITALS: BP 132/64; PULSE 69; RESP 16; TEMP 36.4; O2SAT 94
--- NOTE | 2022-09-25 17:13 | NURSING ---
PT FAMILY ASKING IF PT CAN BE SHAVED TWICE A WEEK. STAFF AWARE.
[2022-09-25] MEDS: Donepezil HCl 10 MG Tablet PO (21:29)
[2022-09-26] MEDS: Lisinopril 20 MG Tablet PO (06:09)
[2022-09-26] MEDS: Cholecalciferol (VIT D3) 25 MCG TABLET (1,000 UNITS) PO (06:09)
[2022-09-26] MEDS: Acetaminophen 500 MG Tablet 1000 MG PO ×3 (06:10→21:28)
[2022-09-26] MEDS: ARIPiprazole 2 MG Tablet PO (06:10)
[2022-09-26] MEDS: APIXABAN 5 MG TABLET PO ×2 (06:10→17:51)
[2022-09-26] MEDS: Menthol/Lanolin/Calamine/Znox 113 GM Tube 1 APPLIC TOPICAL ×2 (06:12→17:49)
[2022-09-26] MEDS: Nystatin Powder 15gm Bottle 1 APPLIC TOPICAL ×2 (06:12→17:49)
[2022-09-26] MEDS: Senna/Docusate Sodium 1 Tablet 2 TABLET PO ×2 (06:12→17:51)
[2022-09-26 07:52] LABS: Hematocrit 29.2 % (40-54); Hemoglobin 9.2 g/dL (13.0-16.5)
[2022-09-26] MEDS: Ascorbic Acid 500 MG Tablet 1000 MG PO (09:26)
[2022-09-26] MEDS: Multivitamins,Therapeutic Tablet 1 TABLET PO (09:26)
[2022-09-26] MEDS: Iron Polysaccharide Complex 150 MG CAPSULE PO (09:26)
[2022-09-26 10:00] VITALS: PULSE 78
[2022-09-26] MEDS: 0.9% Saline Lock 10 ML Syringe IV ×2 (14:09→21:34)
[2022-09-26 16:00] VITALS: BP 123/69; PULSE 89; RESP 16; TEMP 36.9; O2SAT 93
[2022-09-26] MEDS: Donepezil HCl 10 MG Tablet PO (21:29)
[2022-09-27 05:00] VITALS: BP 125/71; PULSE 92; TEMP 36.8
[2022-09-27] MEDS: Senna/Docusate Sodium 1 Tablet 2 TABLET PO ×2 (05:17→17:42)
[2022-09-27] MEDS: Menthol/Lanolin/Calamine/Znox 113 GM Tube 1 APPLIC TOPICAL ×2 (05:17→17:41)
[2022-09-27] MEDS: Acetaminophen 500 MG Tablet 1000 MG PO ×3 (05:18→22:56)
[2022-09-27] MEDS: Nystatin Powder 15gm Bottle 1 APPLIC TOPICAL ×2 (05:18→17:42)
[2022-09-27] MEDS: ARIPiprazole 2 MG Tablet PO (05:18)
[2022-09-27] MEDS: Lisinopril 20 MG Tablet PO (05:18)
[2022-09-27] MEDS: APIXABAN 5 MG TABLET PO ×2 (05:18→17:41)
[2022-09-27] MEDS: Cholecalciferol (VIT D3) 25 MCG TABLET (1,000 UNITS) PO (05:19)
[2022-09-27] MEDS: Ascorbic Acid 500 MG Tablet 1000 MG PO (07:40)
[2022-09-27] MEDS: Multivitamins,Therapeutic Tablet 1 TABLET PO (07:40)
[2022-09-27] MEDS: Iron Polysaccharide Complex 150 MG CAPSULE PO (07:40)
[2022-09-27] MEDS: 0.9% Saline Lock 10 ML Syringe IV ×2 (13:46→16:24)
[2022-09-27 15:29] VITALS: BP 116/64; PULSE 86; RESP 14; TEMP 36.2; O2SAT 95
[2022-09-27] MEDS: traMADol 50 MG Tablet PO (19:23)
--- NOTE | 2022-09-27 20:30 | NURSING ---
Paged Dr. Rebolledo w/ immediate return call. Questioned if pt should have KAL wrap applied to RUE due to localized area of increased edema to the lateral aspect of the lower arm as previous KAL wrap in place noted to have gaps. Telephone order read back to elevate RUE- do not apply KAL wrap. Also received and read back and order to dc Ferrex and start Ferrous Sulfate 325 mg po daily.
[2022-09-27] MEDS: Donepezil HCl 10 MG Tablet PO (22:56)
[2022-09-28 05:30] LABS: Absolute Lymphocyte Count 2.11 X10^3/uL (0.83-4.51); Absolute Neutrophil Count 3.8 X10^3/uL (2.0-7.7); Basophil% 1.4 % (0-1); Eosinophil# 0.51 X10^3/uL; Eosinophils% 6.9 % (0-5); Hematocrit 29.1 % (40-54); Hemoglobin 9.3 g/dL (13.0-16.5); Lymphocyte # 2.11 X10^3/ul (0.83-4.51); Lymphocyte % 28.7 % (19-41); Mean Corpuscular Hgb 30.4 pg (27.0-32.0); Mean Corpuscular Volume 95.1 fL (80-94); Mean Platelet Vol. 8.5 fl (6.2-12.0); Monocyte# 0.77 X10^3/uL; Monocyte% 10.5 % (0-10); NRBC Flagged by Analyzer 0 % (0-5); Neutrophil # 3.84 X10^3/uL (2.7-7.7); Neutrophil % 52.1 % (47-70); Platelet Count 329 K/mm3 (150-450); RBC Distribution Width SD 52.1 fl (35.1-43.9); Red Blood Count 3.06 M/mm3 (4.6-6.2); White Blood Count 7.4 K/mm3 (4.4-11.0)
[2022-09-28 05:36] VITALS: BP 128/70; PULSE 98
[2022-09-28] MEDS: Menthol/Lanolin/Calamine/Znox 113 GM Tube 1 APPLIC TOPICAL ×2 (05:37→18:10)
[2022-09-28] MEDS: APIXABAN 5 MG TABLET PO ×2 (05:38→18:09)
[2022-09-28] MEDS: Senna/Docusate Sodium 1 Tablet 2 TABLET PO (05:38)
[2022-09-28] MEDS: Lisinopril 20 MG Tablet PO (05:38)
[2022-09-28] MEDS: ARIPiprazole 2 MG Tablet PO (05:38)
[2022-09-28] MEDS: Nystatin Powder 15gm Bottle 1 APPLIC TOPICAL ×2 (05:38→18:10)
[2022-09-28] MEDS: Cholecalciferol (VIT D3) 25 MCG TABLET (1,000 UNITS) PO (05:38)
[2022-09-28] MEDS: Acetaminophen 500 MG Tablet 1000 MG PO ×3 (05:52→22:07)
[2022-09-28 05:57] LABS: ALB/GLOB Ratio 0.5 RATIO (0.9-2.4); AST(SGOT) 27 U/L (15-37); Alanine Aminotransfer ALT/SGPT 28 U/L (16-61); Alkaline Phosphatase 165 U/L (45-117); Anion Gap 4 (5-15); BUN 13 mg/dL (7-18); Calcium,Total 8.1 mg/dL (8.5-10.1); Chloride 105 mmol/L (98-107); Creatinine, Serum 0.54 mg/dL (0.70-1.30); EST Glomerular Filtration Rate 154 mL/min (>60); Est Glom Filt Rate - Afr Amer 187 mL/min (>60); Estimated Creatinine Clearance 62.51 ml/min; Globulin 4.4 g/dL (2.2-4.2); Glucose 82 mg/dL (74-106); Potassium 3.8 mmol/L (3.5-5.1); Protein, Total 6.4 g/dL (6.4-8.2); Sodium Level 141 mmol/L (136-145)
[2022-09-28] MEDS: Multivitamins,Therapeutic Tablet 1 TABLET PO (08:17)
[2022-09-28] MEDS: Ascorbic Acid 500 MG Tablet 1000 MG PO (08:17)
--- NOTE | 2022-09-28 10:01 | MDS.RN ---
Information for the mds was obtained from review of the clinical record, interview of resident, staff, and direct observation of resident's care.
[2022-09-28] MEDS: Ferrous Sulfate 325 MG Tablet PO (13:12)
--- NOTE | 2022-09-28 13:17 | NURSING ---
Addendum entered by Arabella Gamboa 09/28/22 15:24: new order for CT abd/pelvis with contrast. ordered faxed. Original Note: dr Sigala paged regarding repeat CT of abd/pelvis. ordered CT according to last hospital request.
--- NOTE | 2022-09-28 14:16 | CASEMGMT ---
Social Work Received call from EBONY Lyles with additional questions related to changing pt's insurance plan. SW answered questions and explained the difference between [facility] and Managed [facility] plan. Explained a precert will need to be obtained for 09/30, date of insurance switch, and explained review process. Explained typically insurance will cover through IV ATB, but if pt is not making progress in therapy, insurance is likely to issue DC date. EBONY expressed understanding and plans to proceed with insurance switch. SW to continue to follow. Justine Chun, ASSISTANT NURSE MANAGER RUBBER PRODUCTION MACHINE OPERATOR
[2022-09-28 14:26] LABS: Vancomycin, Trough Level 17.1 ug/mL (5.0-15.0)
[2022-09-28] MEDS: 0.9% Saline Lock 10 ML Syringe IV (14:29)
[2022-09-28 14:43] LABS: Erythrocyte Sedimentation Rate 50 mm/hr (0-20)
--- NOTE | 2022-09-28 14:43 | PCM.RX.CS ---
Consult Pharmacy has been consulted to manage selected antiobiotic: Vancomycin Type of Consult: Follow-up Labs: Sodium 141 mmol/L (136-145) 09/28/22 05:16 Potassium 3.8 mmol/L (3.5-5.1) 09/28/22 05:16 Chloride 105 mmol/L (98-107) 09/28/22 05:16 Carbon Dioxide 32.0 mmol/L (21.0-32.0) 09/28/22 05:16 Anion Gap 4 (5-15) L 09/28/22 05:16 BUN 13 mg/dL (7-18) 09/28/22 05:16 Creatinine 0.54 mg/dL (0.70-1.30) L 09/28/22 05:16 Est GFR (MDRD) Af Amer 187 mL/min (>60) 09/28/22 05:16 Est GFR (MDRD) Non-Af 154 mL/min (>60) 09/28/22 05:16 BUN/Creatinine Ratio 24.0 RATIO (10-20) H 09/28/22 05:16 Glucose 82 mg/dL (74-106) 09/28/22 05:16 Vancomycin Trough 17.1 ug/mL (5.0-15.0) H 09/28/22 13:38 Random Vancomycin 18.7 ug/mL (0.0-15.0) H 09/18/22 09:28 Microbiology: Microbiology 09/19/22 08:10 Nasal Secretion SARS-CoV-2 Antigen (Rapid) - Final 09/17/22 06:30 Nasal Secretion SARS-CoV-2 Antigen (Rapid) - Final 09/16/22 02:40 Nasal Secretion SARS-CoV-2 Antigen (Rapid) - Final Goal Trough: 15-20 mcg/mL Pharmacy Plan for Drug Dosing: VANCOMYCIN LEVEL RECEIVED Current Vancomycin Dose: 1500MG Q24 Number of Doses Received: 11 (10 BEFORE TROUGH) Vancomycin Level: 17.1 MG/DL Hours Since Last Dose: 24 Renal Function: SCR 0.54, CRCL >100 ML/MIN Renal Function Trend: STABLE Vancomycin Plan/Comments: 24 HOUR TROUGH IS WITHIN THERAPEUTIC RANGE. WILL CONTINUE CURRENT DOSING AND GET A LEVEL IN 4 DAYS. Pending Level: 10/02/22 @ 1330 Pharmacy Service will continue to monitor and adjust dosing as required.
[2022-09-28 15:01] VITALS: BP 115/67; PULSE 90; RESP 18; TEMP 36.4; O2SAT 95
[2022-09-28 22:00] VITALS: PULSE 94; RESP 16; O2SAT 94
[2022-09-28] MEDS: Donepezil HCl 10 MG Tablet PO (22:04)
[2022-09-29] MEDS: APIXABAN 5 MG TABLET PO ×2 (05:06→17:17)
[2022-09-29] MEDS: Cholecalciferol (VIT D3) 25 MCG TABLET (1,000 UNITS) PO (05:06)
[2022-09-29] MEDS: ARIPiprazole 2 MG Tablet PO (05:06)
[2022-09-29] MEDS: Lisinopril 20 MG Tablet PO (05:06)
[2022-09-29] MEDS: Senna/Docusate Sodium 1 Tablet 2 TABLET PO ×2 (05:06→17:17)
[2022-09-29] MEDS: Menthol/Lanolin/Calamine/Znox 113 GM Tube 1 APPLIC TOPICAL ×2 (05:07→17:18)
[2022-09-29] MEDS: Nystatin Powder 15gm Bottle 1 APPLIC TOPICAL ×2 (05:07→17:17)
[2022-09-29] MEDS: Acetaminophen 500 MG Tablet 1000 MG PO ×3 (05:10→21:19)
[2022-09-29 05:20] VITALS: BP 138/66; PULSE 87; RESP 18
[2022-09-29 08:00] VITALS: BMI 25.2
[2022-09-29] MEDS: Multivitamins,Therapeutic Tablet 1 TABLET PO (08:08)
[2022-09-29] MEDS: Ascorbic Acid 500 MG Tablet 1000 MG PO (08:08)
[2022-09-29] MEDS: traMADol 50 MG Tablet PO (11:22)
[2022-09-29] MEDS: Ferrous Sulfate 325 MG Tablet PO (12:46)
[2022-09-29 15:44] VITALS: BP 135/73; PULSE 94; RESP 17; TEMP 36.5
[2022-09-29] MEDS: Donepezil HCl 10 MG Tablet PO (21:19)
[2022-09-30] MEDS: Menthol/Lanolin/Calamine/Znox 113 GM Tube 1 APPLIC TOPICAL ×2 (04:59→18:13)
[2022-09-30] MEDS: Acetaminophen 500 MG Tablet 1000 MG PO ×3 (04:59→20:09)
[2022-09-30] MEDS: Senna/Docusate Sodium 1 Tablet 2 TABLET PO ×2 (05:00→18:11)
[2022-09-30] MEDS: APIXABAN 5 MG TABLET PO ×2 (05:00→18:12)
[2022-09-30] MEDS: Cholecalciferol (VIT D3) 25 MCG TABLET (1,000 UNITS) PO (05:00)
[2022-09-30] MEDS: Nystatin Powder 15gm Bottle 1 APPLIC TOPICAL ×2 (05:00→18:12)
[2022-09-30] MEDS: Lisinopril 20 MG Tablet PO (05:00)
[2022-09-30] MEDS: ARIPiprazole 2 MG Tablet PO (05:00)
--- NOTE | 2022-09-30 07:50 | MDS.RN ---
Addendum entered by Isabel Martin 09/30/22 07:52: correction- DC SNF PPS Part A MDS assessment. Original Note: SNF PPS Part A MDS assessment completed.
[2022-09-30] MEDS: Ascorbic Acid 500 MG Tablet 1000 MG PO (08:06)
[2022-09-30] MEDS: Multivitamins,Therapeutic Tablet 1 TABLET PO (08:07)
[2022-09-30 09:20] VITALS: PULSE 87; RESP 17; O2SAT 95
[2022-09-30] MEDS: Ferrous Sulfate 325 MG Tablet PO (13:09)
[2022-09-30] MEDS: traMADol 50 MG Tablet PO (13:10)
[2022-09-30] MEDS: 0.9% Saline Lock 10 ML Syringe IV (13:15)
[2022-09-30 15:04] VITALS: BP 135/72; PULSE 82; RESP 18; TEMP 36.6; O2SAT 95
[2022-09-30] MEDS: MELATONIN 3 MG TABLET PO (20:06)
[2022-09-30] MEDS: Donepezil HCl 10 MG Tablet PO (20:07)
[2022-10-01 05:34] LABS: Absolute Lymphocyte Count 1.46 X10^3/uL (0.83-4.51); Absolute Neutrophil Count 3.9 X10^3/uL (2.0-7.7); Basophil# 0.07 X10^3/uL; Basophil% 1.1 % (0-1); Eosinophils% 4.7 % (0-5); Hematocrit 28.6 % (40-54); Hemoglobin 9.3 g/dL (13.0-16.5); Lymphocyte # 1.46 X10^3/ul (0.83-4.51); Mean Corp Hgb Conc 32.5 g/dL (32-36); Mean Corpuscular Hgb 31.1 pg (27.0-32.0); Mean Corpuscular Volume 95.7 fL (80-94); Mean Platelet Vol. 8.5 fl (6.2-12.0); Monocyte# 0.66 X10^3/uL; Monocyte% 10.4 % (0-10); NRBC Flagged by Analyzer 0 % (0-5); Neutrophil # 3.85 X10^3/uL (2.7-7.7); Neutrophil % 60.5 % (47-70); Platelet Count 327 K/mm3 (150-450); RBC Distribution Width CV 15.1 % (11.6-14.6); RBC Distribution Width SD 52.2 fl (35.1-43.9); Red Blood Count 2.99 M/mm3 (4.6-6.2); White Blood Count 6.4 K/mm3 (4.4-11.0)
[2022-10-01 05:54] LABS: Erythrocyte Sedimentation Rate 73 mm/hr (0-20)
[2022-10-01] MEDS: ARIPiprazole 2 MG Tablet PO (06:14)
[2022-10-01] MEDS: APIXABAN 5 MG TABLET PO ×2 (06:14→19:43)
[2022-10-01] MEDS: Lisinopril 20 MG Tablet PO (06:14)
[2022-10-01] MEDS: Senna/Docusate Sodium 1 Tablet 2 TABLET PO (06:14)
[2022-10-01] MEDS: Cholecalciferol (VIT D3) 25 MCG TABLET (1,000 UNITS) PO (06:14)
[2022-10-01] MEDS: Acetaminophen 500 MG Tablet 1000 MG PO ×3 (06:15→21:24)
[2022-10-01] MEDS: Nystatin Powder 15gm Bottle 1 APPLIC TOPICAL ×2 (06:22→18:05)
[2022-10-01] MEDS: Menthol/Lanolin/Calamine/Znox 113 GM Tube 1 APPLIC TOPICAL ×2 (06:22→18:05)
[2022-10-01 06:24] VITALS: BP 124/62; PULSE 78
[2022-10-01 06:43] LABS: ALB/GLOB Ratio 0.5 RATIO (0.9-2.4); AST(SGOT) 23 U/L (15-37); Alanine Aminotransfer ALT/SGPT 25 U/L (16-61); Albumin, Serum 2.1 g/dL (3.2-5.0); Alkaline Phosphatase 149 U/L (45-117); Anion Gap 5 (5-15); BUN 12 mg/dL (7-18); BUN/Creat Ratio 23.7 RATIO (10-20); Calcium,Total 8.5 mg/dL (8.5-10.1); Chloride 104 mmol/L (98-107); Creatinine, Serum 0.51 mg/dL (0.70-1.30); EST Glomerular Filtration Rate 167 mL/min (>60); Est Glom Filt Rate - Afr Amer 201 mL/min (>60); Estimated Creatinine Clearance 62.51 ml/min; Globulin 4.5 g/dL (2.2-4.2); Glucose 90 mg/dL (74-106); Potassium 3.9 mmol/L (3.5-5.1); Protein, Total 6.6 g/dL (6.4-8.2); Sodium Level 139 mmol/L (136-145)
--- NOTE | 2022-10-01 08:44 | CASEMGMT ---
Social Work Received email from sonBunny, requesting further information on insurance coverage and has several questions. SW left message with son to provide answers. Will await return call. OKSANA HammondW
[2022-10-01] MEDS: Ascorbic Acid 500 MG Tablet 1000 MG PO (09:26)
[2022-10-01] MEDS: Multivitamins,Therapeutic Tablet 1 TABLET PO (09:26)
[2022-10-01] MEDS: Ferrous Sulfate 325 MG Tablet PO (13:48)
[2022-10-01] MEDS: 0.9% Saline Lock 10 ML Syringe IV ×2 (13:49→18:05)
[2022-10-01 15:09] VITALS: BP 121/73; PULSE 87; RESP 14; TEMP 36.3; O2SAT 94
[2022-10-01] MEDS: traMADol 50 MG Tablet PO (18:10)
[2022-10-01 19:52] VITALS: PULSE 90; RESP 16; O2SAT 90
[2022-10-01] MEDS: Donepezil HCl 10 MG Tablet PO (21:24)
[2022-10-02] MEDS: 0.9% Saline Lock 10 ML Syringe IV ×2 (04:52→15:00)
[2022-10-02] MEDS: Menthol/Lanolin/Calamine/Znox 113 GM Tube 1 APPLIC TOPICAL ×2 (04:58→15:07)
[2022-10-02] MEDS: Nystatin Powder 15gm Bottle 1 APPLIC TOPICAL ×2 (04:59→15:07)
[2022-10-02] MEDS: ARIPiprazole 2 MG Tablet PO (05:03)
[2022-10-02] MEDS: Lisinopril 20 MG Tablet PO (05:04)
[2022-10-02] MEDS: APIXABAN 5 MG TABLET PO ×2 (05:04→18:21)
[2022-10-02] MEDS: Acetaminophen 500 MG Tablet 1000 MG PO ×3 (05:04→19:52)
[2022-10-02] MEDS: Cholecalciferol (VIT D3) 25 MCG TABLET (1,000 UNITS) PO (05:04)
[2022-10-02] MEDS: Senna/Docusate Sodium 1 Tablet 2 TABLET PO ×2 (05:04→18:21)
[2022-10-02] MEDS: Magnesium Hydroxide 30 ML UDC PO (05:05)
[2022-10-02 05:09] VITALS: BP 113/51; PULSE 78; RESP 18
[2022-10-02] MEDS: Ascorbic Acid 500 MG Tablet 1000 MG PO (08:19)
[2022-10-02] MEDS: Multivitamins,Therapeutic Tablet 1 TABLET PO (08:19)
[2022-10-02 08:35] VITALS: PULSE 89; RESP 18; O2SAT 90
[2022-10-02] MEDS: Ferrous Sulfate 325 MG Tablet PO (11:58)
[2022-10-02 14:16] LABS: Vancomycin, Trough Level 18.1 ug/mL (5.0-15.0)
--- NOTE | 2022-10-02 14:29 | PCM.RX.CS ---
Consult Pharmacy has been consulted to manage selected antiobiotic: Vancomycin Type of Consult: Follow-up Prior Doses of Antibiotics Received/Current Regimen: current dose is vanc 1500mg IV q24h Labs: Sodium 139 mmol/L (136-145) 10/01/22 05:18 Potassium 3.9 mmol/L (3.5-5.1) 10/01/22 05:18 Chloride 104 mmol/L (98-107) 10/01/22 05:18 Carbon Dioxide 30.0 mmol/L (21.0-32.0) 10/01/22 05:18 Anion Gap 5 (5-15) 10/01/22 05:18 BUN 12 mg/dL (7-18) 10/01/22 05:18 Creatinine 0.51 mg/dL (0.70-1.30) L 10/01/22 05:18 Est GFR (MDRD) Af Amer 201 mL/min (>60) 10/01/22 05:18 Est GFR (MDRD) Non-Af 167 mL/min (>60) 10/01/22 05:18 BUN/Creatinine Ratio 23.7 RATIO (10-20) H 10/01/22 05:18 Glucose 90 mg/dL (74-106) 10/01/22 05:18 Vancomycin Trough 18.1 ug/mL (5.0-15.0) H 10/02/22 13:43 Random Vancomycin 18.7 ug/mL (0.0-15.0) H 09/18/22 09:28 Microbiology: Microbiology 09/19/22 08:10 Nasal Secretion SARS-CoV-2 Antigen (Rapid) - Final 09/17/22 06:30 Nasal Secretion SARS-CoV-2 Antigen (Rapid) - Final 09/16/22 02:40 Nasal Secretion SARS-CoV-2 Antigen (Rapid) - Final Weight used for dosin.5 kg Estimated Creatinine Clearance: 78ml/min Goal Trough: 15-20 mcg/mL Pharmacy Plan for Drug Dosing: The trough drawn at 13:43 today (24 hours after the previous dose) was 18.1. This is again in goal range. Recommend to keep same dose and since several troughs in a row now have been in goal range, will go 6 days before drawing another one next week. That day will also have labs earlier in the day which checks SCr/CrCl. The patient's CrCl of 78ml/min was calculated using a SCr of 0.8 (0.51 rounded up to 0.8) since the patient is over 65 years old. Pharmacy Service will continue to monitor and adjust dosing as required. Follow-Up Labs: Trough Vancomycin Labs to be done on [date and time ordered]: 10/08/22 13:30
[2022-10-02 14:52] VITALS: BP 125/71; PULSE 81; RESP 16; TEMP 36.8; O2SAT 94
[2022-10-02] MEDS: traMADol 50 MG Tablet PO (15:06)
[2022-10-02] MEDS: Donepezil HCl 10 MG Tablet PO (19:52)
[2022-10-03] MEDS: Cholecalciferol (VIT D3) 25 MCG TABLET (1,000 UNITS) PO (06:29)
[2022-10-03] MEDS: Nystatin Powder 15gm Bottle 1 APPLIC TOPICAL ×2 (06:29→18:43)
[2022-10-03] MEDS: APIXABAN 5 MG TABLET PO ×2 (06:29→18:42)
[2022-10-03] MEDS: Lisinopril 20 MG Tablet PO (06:29)
[2022-10-03] MEDS: Senna/Docusate Sodium 1 Tablet 2 TABLET PO ×2 (06:29→18:43)
[2022-10-03] MEDS: ARIPiprazole 2 MG Tablet PO (06:29)
[2022-10-03] MEDS: Menthol/Lanolin/Calamine/Znox 113 GM Tube 1 APPLIC TOPICAL ×2 (06:31→20:13)
[2022-10-03] MEDS: Acetaminophen 500 MG Tablet 1000 MG PO ×3 (06:32→20:14)
[2022-10-03] MEDS: Ascorbic Acid 500 MG Tablet 1000 MG PO (08:11)
[2022-10-03] MEDS: Multivitamins,Therapeutic Tablet 1 TABLET PO (08:12)
[2022-10-03] MEDS: Magnesium Hydroxide 30 ML UDC PO (08:14)
[2022-10-03 08:50] VITALS: PULSE 90; RESP 18; O2SAT 89
[2022-10-03] MEDS: Ferrous Sulfate 325 MG Tablet PO (11:59)
[2022-10-03 14:46] VITALS: BP 96/62; PULSE 83; RESP 15; TEMP 36.2; O2SAT 93
[2022-10-03] MEDS: Bisacodyl 10 MG Suppository RC (19:54)
[2022-10-03] MEDS: Donepezil HCl 10 MG Tablet PO (20:15)
[2022-10-04] MEDS: Menthol/Lanolin/Calamine/Znox 113 GM Tube 1 APPLIC TOPICAL ×2 (06:12→17:31)
[2022-10-04] MEDS: APIXABAN 5 MG TABLET PO ×2 (06:12→17:32)
[2022-10-04] MEDS: ARIPiprazole 2 MG Tablet PO (06:12)
[2022-10-04] MEDS: Senna/Docusate Sodium 1 Tablet 2 TABLET PO ×2 (06:12→17:32)
[2022-10-04] MEDS: Nystatin Powder 15gm Bottle 1 APPLIC TOPICAL ×2 (06:12→17:32)
[2022-10-04] MEDS: Lisinopril 20 MG Tablet PO (06:13)
[2022-10-04] MEDS: Cholecalciferol (VIT D3) 25 MCG TABLET (1,000 UNITS) PO (06:13)
[2022-10-04] MEDS: Acetaminophen 500 MG Tablet 1000 MG PO ×3 (06:15→21:05)
[2022-10-04 08:05] VITALS: RESP 18
[2022-10-04] MEDS: Ascorbic Acid 500 MG Tablet 1000 MG PO (09:00)
[2022-10-04] MEDS: Multivitamins,Therapeutic Tablet 1 TABLET PO (09:01)
[2022-10-04] MEDS: Ferrous Sulfate 325 MG Tablet PO (11:30)
[2022-10-04 14:20] VITALS: BP 150/85; PULSE 99; RESP 18; TEMP 36.3; O2SAT 95
[2022-10-04] MEDS: Donepezil HCl 10 MG Tablet PO (21:05)
[2022-10-05] MEDS: Menthol/Lanolin/Calamine/Znox 113 GM Tube 1 APPLIC TOPICAL ×2 (05:06→17:15)
[2022-10-05] MEDS: Nystatin Powder 15gm Bottle 1 APPLIC TOPICAL ×2 (05:06→17:15)
[2022-10-05] MEDS: Acetaminophen 500 MG Tablet 1000 MG PO ×3 (05:07→21:23)
[2022-10-05] MEDS: Senna/Docusate Sodium 1 Tablet 2 TABLET PO ×2 (05:08→17:15)
[2022-10-05] MEDS: ARIPiprazole 2 MG Tablet PO (05:08)
[2022-10-05] MEDS: Cholecalciferol (VIT D3) 25 MCG TABLET (1,000 UNITS) PO (05:08)
[2022-10-05] MEDS: APIXABAN 5 MG TABLET PO ×2 (05:08→17:15)
[2022-10-05] MEDS: Lisinopril 20 MG Tablet PO (05:08)
[2022-10-05 05:30] LABS: Absolute Lymphocyte Count 1.82 X10^3/uL (0.83-4.51); Absolute Neutrophil Count 3.9 X10^3/uL (2.0-7.7); Basophil# 0.12 X10^3/uL; Basophil% 1.7 % (0-1); Eosinophil# 0.45 X10^3/uL; Eosinophils% 6.4 % (0-5); Hematocrit 29.4 % (40-54); Hemoglobin 9.5 g/dL (13.0-16.5); Lymphocyte # 1.82 X10^3/ul (0.83-4.51); Lymphocyte % 25.9 % (19-41); Mean Corp Hgb Conc 32.3 g/dL (32-36); Mean Corpuscular Hgb 30.6 pg (27.0-32.0); Mean Corpuscular Volume 94.8 fL (80-94); Mean Platelet Vol. 8.6 fl (6.2-12.0); Monocyte# 0.73 X10^3/uL; Monocyte% 10.4 % (0-10); NRBC Flagged by Analyzer 0 % (0-5); Neutrophil # 3.91 X10^3/uL (2.7-7.7); Neutrophil % 55.5 % (47-70); Platelet Count 335 K/mm3 (150-450); RBC Distribution Width CV 15.6 % (11.6-14.6); RBC Distribution Width SD 53.9 fl (35.1-43.9)
[2022-10-05 05:59] LABS: ALB/GLOB Ratio 0.5 RATIO (0.9-2.4); AST(SGOT) 23 U/L (15-37); Alanine Aminotransfer ALT/SGPT 23 U/L (16-61); Albumin, Serum 2.2 g/dL (3.2-5.0); Alkaline Phosphatase 137 U/L (45-117); Anion Gap 6 (5-15); BUN 18 mg/dL (7-18); BUN/Creat Ratio 31.8 RATIO (10-20); Calcium,Total 8.4 mg/dL (8.5-10.1); Chloride 106 mmol/L (98-107); Creatinine, Serum 0.57 mg/dL (0.70-1.30); EST Glomerular Filtration Rate 147 mL/min (>60); Est Glom Filt Rate - Afr Amer 177 mL/min (>60); Estimated Creatinine Clearance 62.51 ml/min; Globulin 4.4 g/dL (2.2-4.2); Glucose 87 mg/dL (74-106); Protein, Total 6.6 g/dL (6.4-8.2); Sodium Level 141 mmol/L (136-145)
[2022-10-05 06:17] LABS: Erythrocyte Sedimentation Rate 56 mm/hr (0-20)
[2022-10-05] MEDS: Multivitamins,Therapeutic Tablet 1 TABLET PO (07:48)
[2022-10-05] MEDS: Ascorbic Acid 500 MG Tablet 1000 MG PO (07:48)
[2022-10-05] MEDS: Ferrous Sulfate 325 MG Tablet PO (13:25)
[2022-10-05] MEDS: 0.9% Saline Lock 10 ML Syringe IV (13:33)
--- NOTE | 2022-10-05 14:17 | WOUNDNOTE ---
Pt sitting up in chair at this time, but was able to turn in the chair for this nurse to assess the buttocks. the shearing to bilateral buttocks continues to improve. would recommend continuing with the calmoseptine. pt denies discomfort. will continue to monitor.
[2022-10-05 16:00] VITALS: BP 139/79; PULSE 85; RESP 16; TEMP 36.3; O2SAT 95
[2022-10-05 20:00] VITALS: PULSE 85; RESP 16
[2022-10-05] MEDS: Donepezil HCl 10 MG Tablet PO (21:24)
[2022-10-06] MEDS: Menthol/Lanolin/Calamine/Znox 113 GM Tube 1 APPLIC TOPICAL ×2 (04:57→18:19)
[2022-10-06] MEDS: Nystatin Powder 15gm Bottle 1 APPLIC TOPICAL ×2 (04:57→18:19)
[2022-10-06] MEDS: Acetaminophen 500 MG Tablet 1000 MG PO ×3 (05:02→21:08)
[2022-10-06] MEDS: APIXABAN 5 MG TABLET PO ×2 (05:02→18:19)
[2022-10-06] MEDS: Senna/Docusate Sodium 1 Tablet 2 TABLET PO ×2 (05:02→18:19)
[2022-10-06] MEDS: ARIPiprazole 2 MG Tablet PO (05:02)
[2022-10-06] MEDS: Lisinopril 20 MG Tablet PO (05:03)
[2022-10-06] MEDS: Cholecalciferol (VIT D3) 25 MCG TABLET (1,000 UNITS) PO (05:03)
[2022-10-06 05:04] VITALS: BP 120/66; PULSE 75; RESP 16
[2022-10-06] MEDS: Ascorbic Acid 500 MG Tablet 1000 MG PO (08:27)
[2022-10-06] MEDS: Multivitamins,Therapeutic Tablet 1 TABLET PO (08:28)
[2022-10-06 09:25] VITALS: RESP 18
[2022-10-06] MEDS: Alteplase 2 MG/2 ML Vial IV ×2 (11:15→20:06)
[2022-10-06] MEDS: 0.9% Saline Lock 10 ML Syringe IV ×4 (11:19→20:39)
[2022-10-06] MEDS: Ferrous Sulfate 325 MG Tablet PO (12:25)
[2022-10-06 14:35] VITALS: BP 108/67; PULSE 95; RESP 14; TEMP 36.9; O2SAT 95
--- NOTE | 2022-10-06 16:12 | CASEMGMT ---
Social Work Received return call from son, Bunny, who left voicemail requesting clarification for DC plans. Son is aware pt is done with IV ATB on 10/19 and wants to start planning for DC. SW returned call and left detailed voicemail with EDC 10/20, inquiring about DC plans; if goal remains home with [facility]. Requested return call back. Justine Chun, BUS REPAIR SUPERVISOR PICKLE PROCESSOR
[2022-10-06] MEDS: Donepezil HCl 10 MG Tablet PO (21:09)
[2022-10-07] MEDS: Cholecalciferol (VIT D3) 25 MCG TABLET (1,000 UNITS) PO (05:43)
[2022-10-07] MEDS: Acetaminophen 500 MG Tablet 1000 MG PO ×3 (05:43→21:47)
[2022-10-07] MEDS: Lisinopril 20 MG Tablet PO (05:43)
[2022-10-07] MEDS: ARIPiprazole 2 MG Tablet PO (05:43)
[2022-10-07] MEDS: Menthol/Lanolin/Calamine/Znox 113 GM Tube 1 APPLIC TOPICAL ×2 (05:44→16:57)
[2022-10-07] MEDS: Nystatin Powder 15gm Bottle 1 APPLIC TOPICAL ×2 (05:44→16:57)
[2022-10-07] MEDS: APIXABAN 5 MG TABLET PO ×2 (05:44→16:58)
[2022-10-07 05:50] VITALS: BP 131/68; PULSE 87; RESP 16
[2022-10-07] MEDS: Ascorbic Acid 500 MG Tablet 1000 MG PO (08:28)
[2022-10-07] MEDS: Multivitamins,Therapeutic Tablet 1 TABLET PO (08:28)
[2022-10-07 10:00] VITALS: PULSE 94; RESP 16; O2SAT 95
[2022-10-07] MEDS: Ferrous Sulfate 325 MG Tablet PO (13:35)
[2022-10-07] MEDS: 0.9% Saline Lock 10 ML Syringe IV (13:40)
[2022-10-07 14:07] VITALS: BP 139/71; PULSE 74; RESP 16; TEMP 36.6; O2SAT 96
--- NOTE | 2022-10-07 14:25 | CASEMGMT ---
Social Work SW received call from pt son Bunny and discharge plan discussed. Bunny states pt will discharge home on 10/20/22. Hospice services will NOT be restarted. Bunny will arrange for private duty aids from [facility] to be restarted. Bunny declines need for ECF at this time as pt has been there in the past and pt receives better care at home. Bunny will be in town for transition home. Transportation will need to be arranged. ANDREZ Pathak
[2022-10-07] MEDS: Senna/Docusate Sodium 1 Tablet 2 TABLET PO (16:58)
[2022-10-07] MEDS: Donepezil HCl 10 MG Tablet PO (21:42)
[2022-10-08] MEDS: Menthol/Lanolin/Calamine/Znox 113 GM Tube 1 APPLIC TOPICAL ×2 (06:39→17:48)
[2022-10-08] MEDS: Nystatin Powder 15gm Bottle 1 APPLIC TOPICAL ×2 (06:39→17:48)
[2022-10-08] MEDS: Acetaminophen 500 MG Tablet 1000 MG PO ×3 (06:39→21:02)
[2022-10-08] MEDS: Lisinopril 20 MG Tablet PO (06:39)
[2022-10-08] MEDS: APIXABAN 5 MG TABLET PO ×2 (06:39→17:46)
[2022-10-08] MEDS: Cholecalciferol (VIT D3) 25 MCG TABLET (1,000 UNITS) PO (06:39)
[2022-10-08] MEDS: ARIPiprazole 2 MG Tablet PO (06:39)
[2022-10-08] MEDS: Senna/Docusate Sodium 1 Tablet 2 TABLET PO ×2 (06:39→17:46)
[2022-10-08 06:42] VITALS: BP 130/57; PULSE 85
[2022-10-08] MEDS: Ascorbic Acid 500 MG Tablet 1000 MG PO (07:50)
[2022-10-08] MEDS: Multivitamins,Therapeutic Tablet 1 TABLET PO (07:50)
[2022-10-08] MEDS: Ferrous Sulfate 325 MG Tablet PO (07:53)
[2022-10-08 14:55] VITALS: BMI 24.9
[2022-10-08 15:13] VITALS: BP 125/67; PULSE 90; RESP 18; TEMP 36.9; O2SAT 95
[2022-10-08 15:18] LABS: Absolute Neutrophil Count 6.8 X10^3/uL (2.0-7.7); Basophil# 0.11 X10^3/uL; Basophil% 1.2 % (0-1); Eosinophil# 0.22 X10^3/uL; Eosinophils% 2.4 % (0-5); Erythrocyte Sedimentation Rate 64 mm/hr (0-20); Hematocrit 34.2 % (40-54); Hemoglobin 10.8 g/dL (13.0-16.5); Lymphocyte % 13.9 % (19-41); Mean Corp Hgb Conc 31.6 g/dL (32-36); Mean Corpuscular Hgb 30.5 pg (27.0-32.0); Mean Corpuscular Volume 96.6 fL (80-94); Mean Platelet Vol. 9.1 fl (6.2-12.0); Monocyte# 0.92 X10^3/uL; Monocyte% 9.8 % (0-10); NRBC Flagged by Analyzer 0 % (0-5); Neutrophil # 6.77 X10^3/uL (2.7-7.7); Neutrophil % 72.3 % (47-70); Platelet Count 375 K/mm3 (150-450); RBC Distribution Width CV 15.7 % (11.6-14.6); RBC Distribution Width SD 55.9 fl (35.1-43.9); Red Blood Count 3.54 M/mm3 (4.6-6.2); White Blood Count 9.4 K/mm3 (4.4-11.0)
[2022-10-08 15:57] LABS: Vancomycin, Trough Level 18.4 ug/mL (5.0-15.0)
[2022-10-08 15:58] LABS: ALB/GLOB Ratio 0.6 RATIO (0.9-2.4); AST(SGOT) 25 U/L (15-37); Alanine Aminotransfer ALT/SGPT 28 U/L (16-61); Albumin, Serum 2.6 g/dL (3.2-5.0); Alkaline Phosphatase 145 U/L (45-117); Anion Gap 6 (5-15); BUN 16 mg/dL (7-18); BUN/Creat Ratio 23.7 RATIO (10-20); Calcium,Total 8.7 mg/dL (8.5-10.1); Chloride 105 mmol/L (98-107); Creatinine, Serum 0.67 mg/dL (0.70-1.30); EST Glomerular Filtration Rate 120 mL/min (>60); Est Glom Filt Rate - Afr Amer 145 mL/min (>60); Estimated Creatinine Clearance 62.51 ml/min; Globulin 4.7 g/dL (2.2-4.2); Glucose 114 mg/dL (74-106); Potassium 3.7 mmol/L (3.5-5.1); Protein, Total 7.3 g/dL (6.4-8.2); Sodium Level 140 mmol/L (136-145)
--- NOTE | 2022-10-08 16:16 | PCM.RX.CS ---
Consult Pharmacy has been consulted to manage selected antiobiotic: Vancomycin Type of Consult: Follow-up Prior Doses of Antibiotics Received/Current Regimen: Medications Vancomycin HCl 1,500 mg/ (Sodium Chloride) 530 mls @ 250 mls/hr IV Q24H JOEY Last Admin: 10/08/22 14:57 Dose: 250 mls/hr Labs: Sodium 140 mmol/L (136-145) 10/08/22 14:24 Potassium 3.7 mmol/L (3.5-5.1) 10/08/22 14:24 Chloride 105 mmol/L (98-107) 10/08/22 14:24 Carbon Dioxide 29.0 mmol/L (21.0-32.0) 10/08/22 14:24 Anion Gap 6 (5-15) 10/08/22 14:24 BUN 16 mg/dL (7-18) 10/08/22 14:24 Creatinine 0.67 mg/dL (0.70-1.30) L 10/08/22 14:24 Est GFR (MDRD) Af Amer 145 mL/min (>60) 10/08/22 14:24 Est GFR (MDRD) Non-Af 120 mL/min (>60) 10/08/22 14:24 BUN/Creatinine Ratio 23.7 RATIO (10-20) H 10/08/22 14:24 Glucose 114 mg/dL (74-106) H 10/08/22 14:24 Vancomycin Trough 18.4 ug/mL (5.0-15.0) H 10/08/22 14:24 Random Vancomycin 18.7 ug/mL (0.0-15.0) H 09/18/22 09:28 Microbiology: Microbiology 09/19/22 08:10 Nasal Secretion SARS-CoV-2 Antigen (Rapid) - Final 09/17/22 06:30 Nasal Secretion SARS-CoV-2 Antigen (Rapid) - Final 09/16/22 02:40 Nasal Secretion SARS-CoV-2 Antigen (Rapid) - Final Weight used for dosin kg Goal Trough: 15-20 mcg/mL Pharmacy Plan for Drug Dosing: Trough in goal range. Continue and re-check in a week. Pharmacy Service will continue to monitor and adjust dosing as required. Follow-Up Labs: Trough Vancomycin - 10/15 1330
[2022-10-08] MEDS: 0.9% Saline Lock 10 ML Syringe IV (19:51)
[2022-10-08 19:52] VITALS: PULSE 92; RESP 16; O2SAT 97
[2022-10-08] MEDS: Donepezil HCl 10 MG Tablet PO (21:02)
[2022-10-09] MEDS: Acetaminophen 500 MG Tablet 1000 MG PO ×2 (05:29→20:51)
[2022-10-09] MEDS: Senna/Docusate Sodium 1 Tablet 2 TABLET PO ×2 (05:29→17:30)
[2022-10-09] MEDS: ARIPiprazole 2 MG Tablet PO (05:29)
[2022-10-09] MEDS: Nystatin Powder 15gm Bottle 1 APPLIC TOPICAL ×2 (05:29→17:30)
[2022-10-09] MEDS: Cholecalciferol (VIT D3) 25 MCG TABLET (1,000 UNITS) PO (05:29)
[2022-10-09] MEDS: Lisinopril 20 MG Tablet PO (05:29)
[2022-10-09] MEDS: APIXABAN 5 MG TABLET PO ×2 (05:29→17:30)
[2022-10-09] MEDS: Menthol/Lanolin/Calamine/Znox 113 GM Tube 1 APPLIC TOPICAL ×2 (05:30→17:31)
[2022-10-09] MEDS: Multivitamins,Therapeutic Tablet 1 TABLET PO (09:17)
[2022-10-09] MEDS: Ascorbic Acid 500 MG Tablet 1000 MG PO (09:17)
[2022-10-09] MEDS: traMADol 50 MG Tablet PO (09:21)
[2022-10-09] MEDS: Ferrous Sulfate 325 MG Tablet PO (12:04)
--- NOTE | 2022-10-09 14:33 | RAD_ITS ---
INDICATION: Low back pain EXAMINATION/TECHNIQUE: X-RAY - XR Spine Lumbar Min 4 Views COMPARISON: CT of the abdomen and pelvis dated September 28, 2022 FINDINGS: VERTEBRAE: There is stable multilevel endplate deformities. The bones are diffusely demineralized. The alignment is stable. No acute fracture. DISCS: Disc spaces are maintained. INCLUDED ABDOMEN: There are vascular calcifications. There is a moderate amount of gas throughout the visualized bowel. There is a stable right total hip arthroplasty that is grossly anatomic in alignment. RAD/L/S Spine Min 4 Views IMPRESSION: Stable multilevel endplate deformities. Moderate amount of gas throughout the visualized loops of bowel. Atherosclerosis. Electronically Signed: Tanesha Asif MD at 15:32 EST ,
[2022-10-09 16:00] VITALS: BP 127/69; PULSE 89; RESP 16; TEMP 37; O2SAT 96
[2022-10-09] MEDS: Donepezil HCl 10 MG Tablet PO (20:50)
[2022-10-10 05:00] VITALS: BP 125/73; PULSE 93
[2022-10-10] MEDS: ARIPiprazole 2 MG Tablet PO (05:29)
[2022-10-10] MEDS: Lisinopril 20 MG Tablet PO (05:29)
[2022-10-10] MEDS: Senna/Docusate Sodium 1 Tablet 2 TABLET PO ×2 (05:29→17:35)
[2022-10-10] MEDS: Cholecalciferol (VIT D3) 25 MCG TABLET (1,000 UNITS) PO (05:30)
[2022-10-10] MEDS: Menthol/Lanolin/Calamine/Znox 113 GM Tube 1 APPLIC TOPICAL ×2 (05:30→17:35)
[2022-10-10] MEDS: APIXABAN 5 MG TABLET PO ×2 (05:30→17:35)
[2022-10-10] MEDS: Nystatin Powder 15gm Bottle 1 APPLIC TOPICAL ×2 (05:30→17:35)
[2022-10-10] MEDS: Acetaminophen 500 MG Tablet 1000 MG PO ×3 (05:38→20:22)
[2022-10-10] MEDS: Multivitamins,Therapeutic Tablet 1 TABLET PO (08:05)
[2022-10-10] MEDS: Ascorbic Acid 500 MG Tablet 1000 MG PO (08:05)
[2022-10-10] MEDS: traMADol 50 MG Tablet PO (08:11)
[2022-10-10] MEDS: Ferrous Sulfate 325 MG Tablet PO (12:02)
[2022-10-10] MEDS: 0.9% Saline Lock 10 ML Syringe IV (14:16)
[2022-10-10 16:00] VITALS: BP 117/69; PULSE 81; RESP 18; TEMP 36.8; O2SAT 97
[2022-10-10] MEDS: Donepezil HCl 10 MG Tablet PO (20:23)
[2022-10-10 20:29] VITALS: PULSE 95; RESP 16; O2SAT 94
[2022-10-11] MEDS: ARIPiprazole 2 MG Tablet PO (05:02)
[2022-10-11] MEDS: Cholecalciferol (VIT D3) 25 MCG TABLET (1,000 UNITS) PO (05:02)
[2022-10-11] MEDS: APIXABAN 5 MG TABLET PO ×2 (05:02→18:02)
[2022-10-11] MEDS: Lisinopril 20 MG Tablet PO (05:02)
[2022-10-11] MEDS: Menthol/Lanolin/Calamine/Znox 113 GM Tube 1 APPLIC TOPICAL ×2 (05:03→18:02)
[2022-10-11] MEDS: Nystatin Powder 15gm Bottle 1 APPLIC TOPICAL ×2 (05:03→18:03)
[2022-10-11] MEDS: Acetaminophen 500 MG Tablet 1000 MG PO ×3 (05:03→21:44)
[2022-10-11] MEDS: Senna/Docusate Sodium 1 Tablet 2 TABLET PO ×2 (05:03→18:02)
[2022-10-11] MEDS: Ascorbic Acid 500 MG Tablet 1000 MG PO (09:31)
[2022-10-11] MEDS: Multivitamins,Therapeutic Tablet 1 TABLET PO (09:32)
[2022-10-11 11:02] VITALS: RESP 18
[2022-10-11] MEDS: Ferrous Sulfate 325 MG Tablet PO (13:40)
[2022-10-11] MEDS: 0.9% Saline Lock 10 ML Syringe IV (13:44)
[2022-10-11 16:00] VITALS: BP 130/63; PULSE 87; RESP 17; TEMP 36.8; O2SAT 96
[2022-10-11] MEDS: Donepezil HCl 10 MG Tablet PO (21:45)
[2022-10-12] MEDS: Menthol/Lanolin/Calamine/Znox 113 GM Tube 1 APPLIC TOPICAL ×2 (05:51→18:11)
[2022-10-12] MEDS: Nystatin Powder 15gm Bottle 1 APPLIC TOPICAL ×2 (05:52→18:12)
[2022-10-12] MEDS: Cholecalciferol (VIT D3) 25 MCG TABLET (1,000 UNITS) PO (05:53)
[2022-10-12] MEDS: APIXABAN 5 MG TABLET PO ×2 (05:53→18:11)
[2022-10-12] MEDS: Acetaminophen 500 MG Tablet 1000 MG PO ×3 (05:53→20:33)
[2022-10-12] MEDS: Senna/Docusate Sodium 1 Tablet 2 TABLET PO ×2 (05:53→18:12)
[2022-10-12] MEDS: ARIPiprazole 2 MG Tablet PO (05:53)
[2022-10-12] MEDS: Lisinopril 20 MG Tablet PO (05:53)
[2022-10-12 05:57] LABS: Absolute Lymphocyte Count 1.52 X10^3/uL (0.83-4.51); Absolute Neutrophil Count 4.6 X10^3/uL (2.0-7.7); Basophil% 1.3 % (0-1); Eosinophil# 0.48 X10^3/uL; Eosinophils% 6.3 % (0-5); Hematocrit 31.3 % (40-54); Lymphocyte # 1.52 X10^3/ul (0.83-4.51); Mean Corp Hgb Conc 31.9 g/dL (32-36); Mean Corpuscular Hgb 31.1 pg (27.0-32.0); Mean Corpuscular Volume 97.2 fL (80-94); Mean Platelet Vol. 8.7 fl (6.2-12.0); Monocyte# 0.88 X10^3/uL; Monocyte% 11.6 % (0-10); NRBC Flagged by Analyzer 0 % (0-5); Neutrophil % 60.4 % (47-70); Platelet Count 330 K/mm3 (150-450); RBC Distribution Width CV 15.8 % (11.6-14.6); RBC Distribution Width SD 56.7 fl (35.1-43.9); Red Blood Count 3.22 M/mm3 (4.6-6.2); White Blood Count 7.6 K/mm3 (4.4-11.0)
[2022-10-12 07:02] LABS: ALB/GLOB Ratio 0.5 RATIO (0.9-2.4); AST(SGOT) 25 U/L (15-37); Alanine Aminotransfer ALT/SGPT 26 U/L (16-61); Albumin, Serum 2.5 g/dL (3.2-5.0); Alkaline Phosphatase 133 U/L (45-117); Anion Gap 5 (5-15); BUN 14 mg/dL (7-18); BUN/Creat Ratio 23.8 RATIO (10-20); Calcium,Total 8.8 mg/dL (8.5-10.1); Chloride 102 mmol/L (98-107); Creatinine, Serum 0.59 mg/dL (0.70-1.30); EST Glomerular Filtration Rate 140 mL/min (>60); Est Glom Filt Rate - Afr Amer 170 mL/min (>60); Estimated Creatinine Clearance 62.51 ml/min; Globulin 4.6 g/dL (2.2-4.2); Glucose 88 mg/dL (74-106); Potassium 4.1 mmol/L (3.5-5.1); Protein, Total 7.1 g/dL (6.4-8.2); Sodium Level 137 mmol/L (136-145)
[2022-10-12 07:04] LABS: Erythrocyte Sedimentation Rate 57 mm/hr (0-20)
[2022-10-12] MEDS: Multivitamins,Therapeutic Tablet 1 TABLET PO (07:57)
[2022-10-12] MEDS: Ascorbic Acid 500 MG Tablet 1000 MG PO (07:57)
--- NOTE | 2022-10-12 10:14 | NURSING ---
pt called in saying she has not been able to get a hold of her all weekend. I went to the patient's room and called his and let them talk on the phone.
[2022-10-12] MEDS: Ferrous Sulfate 325 MG Tablet PO (11:34)
[2022-10-12] MEDS: oxyCODONE 5 MG Tablet 2.5 MG PO (11:34)
[2022-10-12] MEDS: 0.9% Saline Lock 10 ML Syringe IV (13:58)
[2022-10-12 14:19] VITALS: BP 137/73; PULSE 90; RESP 16; TEMP 36.5; O2SAT 96
--- NOTE | 2022-10-12 19:30 | PN.TCU_ITS ---
Subjective Subjective Resident seen, examined for regulatory visit. He has no specific medical complaints. He is upset because he wants to go home. I explained to him he needs 1 more week of intravenous antibiotics. He was satisfied with explanation after some convincing. Objective Data Objective Data Vital Signs: Vital Signs Temp Pulse Resp BP Pulse Ox O2 Del Method O2 Flow Rate 97.7 F L 90 16 137/73 H 96 Room Air 93 10/12/22 14:19 10/12/22 14:19 10/12/22 14:19 10/12/22 14:19 10/12/22 14:19 10/12/22 14:19 09/26/22 16:00 Oxygen Flow Rate (L/min) 93 Oxygen Delivery Method Room Air Weight: 83.461 kg Body Mass Index (BMI) 24.9 Intake & Output: Intake and Output for Last 24 Hours 10/10/22 10/11/22 10/12/22 22:59 23:59 23:59 Intake Total 1370 / 1370 Output Total Balance 1370 / 1370 Lab / Micro Data Result Diagrams: 10/12/22 05:39 10/12/22 05:39 Labs: Laboratory Results - last 24 hr 10/12/22 05:39: WBC 7.6, RBC 3.22 L, Hgb 10.0 L, Hct 31.3 L, MCV 97.2 H, MCH 31.1, MCHC 31.9 L, RDW Std Deviation 56.7 H, RDW Coeff of Berny 15.8 H, Plt Count 330, MPV 8.7, Immature Gran % (Auto) 0.400, Neut % (Auto) 60.4, Lymph % (Auto) 20.0, Knox % (Auto) 11.6 H, Eos % (Auto) 6.3 H, Baso % (Auto) 1.3 H, Absolute Neuts (auto) 4.6, Absolute Lymphs (auto) 1.52, Nucleated RBC % 0, ESR 57 H 10/12/22 05:39: Sodium 137, Potassium 4.1, Chloride 102, Carbon Dioxide 30.0, Anion Gap 5, BUN 14, Creatinine 0.59 L, Estim Creat Clear Calc 62.51, Est GFR (MDRD) Af Amer 170, Est GFR (MDRD) Non-Af 140, BUN/Creatinine Ratio 23.8 H, Glucose 88, Calcium 8.8, Total Bilirubin 0.50, AST 25, ALT 26, Alkaline Phosphatase 133 H, Total Protein 7.1, Albumin 2.5 L, Globulin 4.6 H, Albumin/Globulin Ratio 0.5 L Micro: Microbiology 09/19/22 08:10 Nasal Secretion SARS-CoV-2 Antigen (Rapid) - Final 09/17/22 06:30 Nasal Secretion SARS-CoV-2 Antigen (Rapid) - Final 09/16/22 02:40 Nasal Secretion SARS-CoV-2 Antigen (Rapid) - Final Physical Exam Const alert General Appearance: cooperative HEENT normocephalic Eyes PERRL and EOMs intact bilaterally Neck supple, no JVD and no carotid bruits Resp normal respiratory effort, normal air movement and clear to auscultation bilaterally Cardio regular rate and regular rhythm GI normal to inspection, nondistended, normoactive bowel sounds, non-tender and non-distended Extremity normal capillary refill Extremity Narrative: RUE PICC line. General Extremity: Negative for edema Skin no rashes or lesions noted General Skin Exam: no breakdown Psych affect normal Appearance: appropriate Assessment & Plan Assessment/Plan (1) Debility: (2) Sepsis: (3) MRSA bacteremia: (4) Lumbar discitis: (5) Encephalopathy: (6) Muscular dystrophy: (7) Alzheimer disease: (8) Hypertension: (9) Hyperlipidemia: (10) Pulmonary embolism: (11) Thrombocytopenia: PLAN: Plan 82 year old male with below past medical history hospitalized for sepsis, MRSA bacteremia secondary to lumbar discitis, surgery not recommended, admitted to TCU with debility, here for rehabilitation, strengthening, intravenous antibiotics, prior to discharge home. * Debility - PT/OT. * Cognition - ST. * Pain - Tylenol 1000mg q6h prn pain Q8, Tramadol 60mg q6h prn pain (4-5), Oxycodone 2.5mg q4h prn pain (6-10). * Bowel - senna/colace 2 tablets bid, Dulcolax 10mg pr x 1 prn, MOM 30ml po x 1 prn. * Adult immunization - Administer pneumonia vaccine, covid19 vaccine, flu vaccine as appropriate. * DVT prophylaxis - Not necessary, on Eliquis. * Superficial vein thrombosis - Eliquis 5mg bid. * Alzheimer Disease - Donepezil 10mg qhs, Abilify 2mg daily, stable chronic jail use, GDR not recommended. * Iron deficiency anemia - Iron sulfate 325mg every other day, Vitamin C 1000mg daily. * Hypertension - Lisinopril 20mg daily. * Insomnia - Melatonin 3mg qhs prn. * Skin irritation - Calmoseptine topical bid. * Nutrition - MVI daily. * Tinea Corporis - Nystatin powder topical bid. * MRSA bacteremia/Lumbar discitis - Vancomycin 1500mg iv q24h, stop date 10/19/2022, Dr. Sigala. * Vitamin D deficiency - D3 25mcg daily.
[2022-10-12] MEDS: Donepezil HCl 10 MG Tablet PO (20:33)
[2022-10-12 20:41] VITALS: PULSE 76; RESP 18; O2SAT 95
[2022-10-13 05:35] VITALS: BP 128/70; PULSE 91
[2022-10-13] MEDS: Acetaminophen 500 MG Tablet 1000 MG PO ×3 (05:36→20:13)
[2022-10-13] MEDS: ARIPiprazole 2 MG Tablet PO (05:36)
[2022-10-13] MEDS: Cholecalciferol (VIT D3) 25 MCG TABLET (1,000 UNITS) PO (05:36)
[2022-10-13] MEDS: Menthol/Lanolin/Calamine/Znox 113 GM Tube 1 APPLIC TOPICAL ×2 (05:36→18:05)
[2022-10-13] MEDS: APIXABAN 5 MG TABLET PO ×2 (05:36→18:07)
[2022-10-13] MEDS: Lisinopril 20 MG Tablet PO (05:36)
[2022-10-13] MEDS: Nystatin Powder 15gm Bottle 1 APPLIC TOPICAL ×2 (05:37→18:03)
[2022-10-13] MEDS: Ascorbic Acid 500 MG Tablet 1000 MG PO (08:20)
[2022-10-13] MEDS: Multivitamins,Therapeutic Tablet 1 TABLET PO (08:21)
[2022-10-13 09:25] VITALS: BMI 24.5
--- NOTE | 2022-10-13 10:07 | CASEMGMT ---
Addendum entered by Justine Chun 10/15/22 10:51: SW contacted son again to discuss information. SW educated to pt still being a two assist and IDT recommending use of regan vs sit to stand lift. Son stated at home pt's caregiver's are requesting use of STS lift. SW educated that IDT states pt is unable to use his body weight to safely use the STS lift. Son expressed understanding and caregiver's are aware of muscle weakness, and still requesting STS lift. SW educated insurance does not typically cover STS, only regan's, but will inquire to [facility] about provide pricing to son. Son agreed. SW educated to recommendation for cot vs w/c transport. Son agreed. SW educated to [facility] cannot accept pt due to insurance and inquired to other [facility] preferences. Son stated he does not have a preference, and agreeable to this worker placing referrals to [facility] agencies starting with the highest star ratings, that are in pt's area, and can accept pt's insurance. SW inquired to [facility] about STS lift. Placed referrals to [facility] [place], and [facility] via [facility]. Scheduled cot transport through [facility] for 1100. Addendum entered by Justine Chun 10/13/22 13:41: Count includes the [facility] cannot accept pt's insurance. IDT concerned about DC home as pt is a two assist, and recommending regan lift, also recommending cot transport, as pt has not sat in w/c during stay. SW left voicemail with son requesting return call on above items. Addendum entered by Justine Chun 10/13/22 10:34: Received return call from son. Son requesting to remain with DC 10/20 and would like [facility] the [facility] PT/OT/ST/SN, whom pt used prior to hospice. Son also requesting w/c transport be scheduled. SW agreed and sent referral to [facility] includes the [facility] via [employer] [facility] [employer] [facility] [place]. Pt has no DME needs. SW to coordinate w/c transport. Plan: DC home 10/20, [facility] the [facility] PT/OT/ST/SN OKSANA HammondW Original Note: Social Work Left message with son, Bunny, to update on insurance NRD 10/19, which is end of IV ATB. SW offered for son to set DC date since [place]. Will continue to follow. Justine Chun, ENTRY LEVEL PROGRAMMER BILLING DEPARTMENT SUPERVISOR
[2022-10-13 11:25] VITALS: BP 117/64; PULSE 93; RESP 16; TEMP 36.9; O2SAT 95
[2022-10-13] MEDS: 0.9% Saline Lock 10 ML Syringe IV (12:58)
[2022-10-13] MEDS: Ferrous Sulfate 325 MG Tablet PO (12:58)
[2022-10-13 14:23] VITALS: BP 121/56; PULSE 60; RESP 16; TEMP 36.5; O2SAT 96
--- NOTE | 2022-10-13 17:41 | PCM.DC.SUM ---
Providers Date of Admission: 09/15/22 Primary Care Physician: Dr. Rafael Mendoza, Consultations 09/16/22 01:02 Consult: Onc/Wound/sewage treatment plant operator Routine Comment: 09/16/22 08:08 Consult: Infectious Disease Routine Consulting Provider: Shalom Sigala Reason for Consult: Sepsis, MRSA bacteremia, lumbar discitis. EMERGENT Consult: No MD Notified: Yes Date Notified: 09/16/22 Time Notified: 09:11 Method of Notification: Answering Service Reason For Visit: MRSA OF THE SPINE Diagnosis Discharge Diagnosis (1) Debility: Status: Acute Code(s): R53.81 - Other malaise (2) Sepsis: Status: Acute Code(s): A41.9 - Sepsis, unspecified organism (3) MRSA bacteremia: Status: Acute Code(s): R78.81 - Bacteremia; B95.62 - Methicillin resistant Staphylococcus aureus infection as the cause of diseases classified elsewhere (4) Lumbar discitis: Status: Acute Code(s): M46.46 - Discitis, unspecified, lumbar region (5) Encephalopathy: Status: Acute Code(s): G93.40 - Encephalopathy, unspecified (6) Muscular dystrophy: Status: Acute Code(s): G71.00 - Muscular dystrophy, unspecified (7) Alzheimer disease: Status: Acute Code(s): G30.9 - Alzheimer's disease, unspecified; F02.80 - Dementia in other diseases classified elsewhere, unspecified severity, without behavioral disturbance, psychotic disturbance, mood disturbance, and anxiety (8) Hypertension: Status: Chronic Code(s): I10 - Essential (primary) hypertension (9) Hyperlipidemia: Status: Acute Code(s): E78.5 - Hyperlipidemia, unspecified (10) Pulmonary embolism: Status: Acute Code(s): I26.99 - Other pulmonary embolism without acute cor pulmonale (11) Thrombocytopenia: Status: Acute Code(s): D69.6 - Thrombocytopenia, unspecified Plan 82 year old male with below past medical history hospitalized for sepsis, MRSA bacteremia secondary to lumbar discitis, surgery not recommended, admitted to TCU with debility, here for rehabilitation, strengthening, intravenous antibiotics, prior to discharge home. Debility - PT/OT. Cognition - ST. Pain - Tylenol 1000mg q6h prn pain Q8, Tramadol 60mg q6h prn pain (4-5), Oxycodone 2.5mg q4h prn pain (6-10). Bowel - senna/colace 2 tablets bid, Dulcolax 10mg pr x 1 prn, MOM 30ml po x 1 prn. Adult immunization - Administer pneumonia vaccine, covid19 vaccine, flu vaccine as appropriate. DVT prophylaxis - Not necessary, on Eliquis. Superficial vein thrombosis - Eliquis 5mg bid. Alzheimer Disease - Donepezil 10mg qhs, Abilify 2mg daily, stable chronic computer terminal operator use, GDR not recommended. Iron deficiency anemia - Iron sulfate 325mg every other day, Vitamin C 1000mg daily. Hypertension - Lisinopril 20mg daily. Insomnia - Melatonin 3mg qhs prn. Skin irritation - Calmoseptine topical bid. Nutrition - MVI daily. Tinea Corporis - Nystatin powder topical bid. MRSA bacteremia/Lumbar discitis - Vancomycin 1500mg iv q24h, stop date 10/19/2022, Dr. Sigala. Vitamin D deficiency - D3 25mcg daily. Medications at Discharge Home Medications acetaminophen 500 mg tablet 1,000 mg PO Q8 #0 tabs 10/13/22 apixaban 5 mg tablet (Eliquis) 5 mg PO BID #0 tabs 10/13/22 aripiprazole 2 mg tablet 2 mg PO DAILY #0 tabs 10/13/22 ascorbic acid (vitamin C) 500 mg tablet 1,000 mg PO BREAKFAST #0 tabs 10/13/22 cholecalciferol (vitamin D3) 25 mcg (1,000 unit) tablet 25 mcg PO DAILY #0 tabs 10/13/22 donepezil 10 mg tablet 10 mg PO QHS #0 tabs 10/13/22 ferrous sulfate 325 mg (65 mg iron) tablet (FeroSul) 325 mg PO DAILY@1200 30 days #30 tabs 10/13/22 lisinopril 20 mg tablet 20 mg PO DAILY #0 tabs 10/13/22 tramadol 50 mg tablet 50 mg PO Q6H PRN PRN Pain Score 1-5 7 days #28 tabs 10/13/22 Hospital Course Operations None Procedures None Summary of Care Provided Minutes Spent on Discharge: 35 Hospital Course: 82 year old male with below past medical history hospitalized for sepsis, MRSA bacteremia secondary to lumbar discitis, surgery not recommended, admitted to TCU with debility, here for rehabilitation, strengthening, intravenous antibiotics, prior to discharge home. Discharge home with 10/20/2022, [facility] PT/OT/ST/SN. Physical Exam Const alert General Appearance: cooperative HEENT normocephalic Eyes PERRL and EOMs intact bilaterally Neck supple, no JVD and no carotid bruits Resp normal respiratory effort, normal air movement and clear to auscultation bilaterally Cardio regular rate and regular rhythm GI normal to inspection, nondistended, normoactive bowel sounds, non-tender and non-distended Extremity normal capillary refill General Extremity: Negative for edema Skin no rashes or lesions noted General Skin Exam: no breakdown Psych affect normal Appearance: appropriate Weight / BMI Weight Weight: 82.01 kg Body Mass Index (BMI) 24.5 ABG / Lab / Microbiology Data Result Diagrams: 10/12/22 05:39 10/12/22 05:39 Microbiology: Microbiology 09/19/22 08:10 Nasal Secretion SARS-CoV-2 Antigen (Rapid) - Final 09/17/22 06:30 Nasal Secretion SARS-CoV-2 Antigen (Rapid) - Final 09/16/22 02:40 Nasal Secretion SARS-CoV-2 Antigen (Rapid) - Final D/C Instructions Discharge Diet: No restrictions Discharge Activity: Return to Normal Activity, May Shower and Use Walker Weight Bearing Status: Weight bearing as tolerated Call your doctor if you observe: Fever of 101 or Higher, Inability to urinate, Inability to have a bowel movement, Shortness of breath, Dizziness, Fainting spells, Swelling in the ankles, Chest pain and Uncontrolled pain Additional Instructions: Discharge home with 10/20/2022, [facility] PT/OT/ST/SN. Please Follow Up With: MRI When: After discharge. Meaningful Use Info Meaningful Use Diagnoses (Choose all that apply): None applicable Discharge Plan Admission Admit Date/Time: 09/15/22 21:17 Primary Reason for Your Visit: Debility. Attending Provider: Rosendo Rebolledo Chi Primary Care Provider: Rafael Mendoza Consulting Providers: Shalom Sigala Instructions Additional Instructions / Restrictions: Discharge home with 10/20/2022, [facility] PT/OT/ST/SN. Discharge Orders/Prescriptions Prescriptions: New acetaminophen 500 mg Tablet 1,000 mg PO Q8 Qty: 0 0RF Eliquis 5 mg Tablet 5 mg PO BID Qty: 0 0RF ascorbic acid (vitamin C) 500 mg Tablet 1,000 mg PO BREAKFAST Qty: 0 0RF aripiprazole 2 mg Tablet 2 mg PO DAILY Qty: 0 0RF donepezil 10 mg Tablet 10 mg PO QHS Qty: 0 0RF cholecalciferol (vitamin D3) 25 mcg (1,000 unit) Tablet 25 mcg PO DAILY Qty: 0 0RF ferrous sulfate [FeroSul] 325 mg (65 mg iron) Tablet 325 mg PO DAILY@1200 30 Days Qty: 30 0RF lisinopril 20 mg Tablet 20 mg PO DAILY Qty: 0 0RF tramadol 50 mg Tablet 50 mg PO Q6H PRN PRN (Reason: Pain Score 1-5) 7 Days Qty: 28 0RF Referrals / Follow Up: Rafael Mendoza DO [Primary Care Provider] - Disposition Disposition (needs filled in before D/C Order can be placed): Home Health Service
[2022-10-13] MEDS: Senna/Docusate Sodium 1 Tablet 2 TABLET PO (18:07)
[2022-10-13] MEDS: Donepezil HCl 10 MG Tablet PO (20:09)
[2022-10-14] MEDS: Senna/Docusate Sodium 1 Tablet 2 TABLET PO ×2 (05:17→17:59)
[2022-10-14] MEDS: Acetaminophen 500 MG Tablet 1000 MG PO ×3 (05:17→19:48)
[2022-10-14] MEDS: APIXABAN 5 MG TABLET PO ×2 (05:18→17:59)
[2022-10-14] MEDS: Menthol/Lanolin/Calamine/Znox 113 GM Tube 1 APPLIC TOPICAL ×2 (05:18→17:57)
[2022-10-14] MEDS: ARIPiprazole 2 MG Tablet PO (05:18)
[2022-10-14] MEDS: Cholecalciferol (VIT D3) 25 MCG TABLET (1,000 UNITS) PO (05:18)
[2022-10-14] MEDS: Lisinopril 20 MG Tablet PO (05:18)
[2022-10-14] MEDS: Nystatin Powder 15gm Bottle 1 APPLIC TOPICAL ×2 (05:18→17:57)
[2022-10-14] MEDS: Multivitamins,Therapeutic Tablet 1 TABLET PO (08:40)
[2022-10-14] MEDS: Ascorbic Acid 500 MG Tablet 1000 MG PO (08:40)
[2022-10-14] MEDS: Ferrous Sulfate 325 MG Tablet PO (12:22)
[2022-10-14] MEDS: 0.9% Saline Lock 10 ML Syringe IV (12:26)
--- NOTE | 2022-10-14 14:10 | NURSING ---
MRI order placed by Dr Sigala, called insurance company and spoke with Benjamín Bravo, per him no authorization needed, ok to proceed with scan. Reference #[id number]
[2022-10-14 16:00] VITALS: BP 122/64; PULSE 90; RESP 18; TEMP 37.3; O2SAT 94
[2022-10-14] MEDS: Donepezil HCl 10 MG Tablet PO (19:48)
[2022-10-14] MEDS: traMADol 50 MG Tablet PO (23:29)
[2022-10-14 23:59] VITALS: PULSE 87; RESP 18; O2SAT 98
[2022-10-15] MEDS: Menthol/Lanolin/Calamine/Znox 113 GM Tube 1 APPLIC TOPICAL ×2 (05:30→16:58)
[2022-10-15] MEDS: Lisinopril 20 MG Tablet PO (05:30)
[2022-10-15] MEDS: Acetaminophen 500 MG Tablet 1000 MG PO ×3 (05:30→20:46)
[2022-10-15] MEDS: Cholecalciferol (VIT D3) 25 MCG TABLET (1,000 UNITS) PO (05:30)
[2022-10-15] MEDS: Nystatin Powder 15gm Bottle 1 APPLIC TOPICAL ×2 (05:30→16:57)
[2022-10-15] MEDS: ARIPiprazole 2 MG Tablet PO (05:30)
[2022-10-15] MEDS: APIXABAN 5 MG TABLET PO ×2 (05:30→16:58)
[2022-10-15] MEDS: Senna/Docusate Sodium 1 Tablet 2 TABLET PO ×2 (05:31→16:58)
[2022-10-15] MEDS: Multivitamins,Therapeutic Tablet 1 TABLET PO (07:38)
[2022-10-15] MEDS: Ascorbic Acid 500 MG Tablet 1000 MG PO (07:38)
[2022-10-15] MEDS: Ferrous Sulfate 325 MG Tablet PO (11:35)
[2022-10-15] MEDS: 0.9% Saline Lock 10 ML Syringe IV (13:42)
[2022-10-15 13:48] LABS: Erythrocyte Sedimentation Rate 67 mm/hr (0-20)
[2022-10-15 13:50] LABS: Absolute Lymphocyte Count 1.29 X10^3/uL (0.83-4.51); Basophil# 0.11 X10^3/uL; Basophil% 1.5 % (0-1); Eosinophil# 0.25 X10^3/uL; Eosinophils% 3.4 % (0-5); Hematocrit 32.1 % (40-54); Hemoglobin 10.5 g/dL (13.0-16.5); Lymphocyte # 1.29 X10^3/ul (0.83-4.51); Lymphocyte % 17.6 % (19-41); Mean Corp Hgb Conc 32.7 g/dL (32-36); Mean Corpuscular Hgb 31.9 pg (27.0-32.0); Mean Corpuscular Volume 97.6 fL (80-94); Mean Platelet Vol. 8.8 fl (6.2-12.0); Monocyte# 0.63 X10^3/uL; Monocyte% 8.6 % (0-10); NRBC Flagged by Analyzer 0 % (0-5); Neutrophil # 5.01 X10^3/uL (2.7-7.7); Neutrophil % 68.6 % (47-70); Platelet Count 315 K/mm3 (150-450); RBC Distribution Width CV 15.8 % (11.6-14.6); RBC Distribution Width SD 56.3 fl (35.1-43.9); Red Blood Count 3.29 M/mm3 (4.6-6.2); White Blood Count 7.3 K/mm3 (4.4-11.0)
[2022-10-15 14:23] LABS: ALB/GLOB Ratio 0.5 RATIO (0.9-2.4); AST(SGOT) 23 U/L (15-37); Alanine Aminotransfer ALT/SGPT 28 U/L (16-61); Albumin, Serum 2.6 g/dL (3.2-5.0); Alkaline Phosphatase 148 U/L (45-117); Anion Gap 7 (5-15); BUN 18 mg/dL (7-18); BUN/Creat Ratio 27.1 RATIO (10-20); Calcium,Total 8.6 mg/dL (8.5-10.1); Chloride 102 mmol/L (98-107); Creatinine, Serum 0.66 mg/dL (0.70-1.30); EST Glomerular Filtration Rate 122 mL/min (>60); Est Glom Filt Rate - Afr Amer 148 mL/min (>60); Estimated Creatinine Clearance 62.51 ml/min; Globulin 4.8 g/dL (2.2-4.2); Glucose 137 mg/dL (74-106); Protein, Total 7.4 g/dL (6.4-8.2); Sodium Level 138 mmol/L (136-145)
[2022-10-15 14:47] VITALS: BP 116/63; PULSE 91; RESP 16; TEMP 36.8; O2SAT 95
--- NOTE | 2022-10-15 15:11 | PCM.RX.CS ---
Consult Pharmacy has been consulted to manage selected antiobiotic: Vancomycin Type of Consult: Follow-up Prior Doses of Antibiotics Received/Current Regimen: Current dose is 1500mg iv q24h. Labs: Sodium 138 mmol/L (136-145) 10/15/22 13:35 Potassium 4.0 mmol/L (3.5-5.1) 10/15/22 13:35 Chloride 102 mmol/L (98-107) 10/15/22 13:35 Carbon Dioxide 29.0 mmol/L (21.0-32.0) 10/15/22 13:35 Anion Gap 7 (5-15) 10/15/22 13:35 BUN 18 mg/dL (7-18) 10/15/22 13:35 Creatinine 0.66 mg/dL (0.70-1.30) L 10/15/22 13:35 Est GFR (MDRD) Af Amer 148 mL/min (>60) 10/15/22 13:35 Est GFR (MDRD) Non-Af 122 mL/min (>60) 10/15/22 13:35 BUN/Creatinine Ratio 27.1 RATIO (10-20) H 10/15/22 13:35 Glucose 137 mg/dL (74-106) H 10/15/22 13:35 Vancomycin Trough 15.0 ug/mL (5.0-15.0) 10/15/22 13:35 Random Vancomycin 18.7 ug/mL (0.0-15.0) H 09/18/22 09:28 Microbiology: Microbiology 09/19/22 08:10 Nasal Secretion SARS-CoV-2 Antigen (Rapid) - Final 09/17/22 06:30 Nasal Secretion SARS-CoV-2 Antigen (Rapid) - Final 09/16/22 02:40 Nasal Secretion SARS-CoV-2 Antigen (Rapid) - Final Weight used for dosin kg Estimated Creatinine Clearance: 100 ml/min Goal Trough: 15-20 mcg/mL Pharmacy Plan for Drug Dosing: Trough level today was 15.0 and in goal range. No dose change to be done. No follow up trough level ordered since vancomycin to be DC'd 10.19.22. Pharmacy Service will continue to monitor and adjust dosing as required.
--- NOTE | 2022-10-15 17:37 | NURSING ---
DR ESPINOZA AWARE OF MRI RESULTS FROM YESTERDAY.
[2022-10-15] MEDS: Donepezil HCl 10 MG Tablet PO (20:47)
[2022-10-16] MEDS: Senna/Docusate Sodium 1 Tablet 2 TABLET PO ×2 (04:49→18:26)
[2022-10-16] MEDS: Cholecalciferol (VIT D3) 25 MCG TABLET (1,000 UNITS) PO (04:49)
[2022-10-16] MEDS: APIXABAN 5 MG TABLET PO ×2 (04:50→18:26)
[2022-10-16] MEDS: Acetaminophen 500 MG Tablet 1000 MG PO ×3 (04:50→21:57)
[2022-10-16] MEDS: ARIPiprazole 2 MG Tablet PO (04:50)
[2022-10-16] MEDS: Lisinopril 20 MG Tablet PO (04:50)
[2022-10-16] MEDS: Menthol/Lanolin/Calamine/Znox 113 GM Tube 1 APPLIC TOPICAL ×2 (04:50→18:29)
[2022-10-16] MEDS: Nystatin Powder 15gm Bottle 1 APPLIC TOPICAL ×2 (04:50→18:31)
[2022-10-16 04:56] VITALS: BP 115/61; PULSE 96; RESP 16
[2022-10-16] MEDS: Multivitamins,Therapeutic Tablet 1 TABLET PO (08:52)
[2022-10-16] MEDS: Ascorbic Acid 500 MG Tablet 1000 MG PO (08:52)
--- NOTE | 2022-10-16 09:49 | CASEMGMT ---
Addendum entered by Justine Chun 10/16/22 16:00: [facility] can provide PT/OT/SN, but no ST or FRAGOSO. There is no DME company that can supply the STS lift. NANCY spoke with son and updated him on above. Son is agreeable to [facility] without ST or FRAGOSO, and okay with paying OOP for STS through [facility]. NANCY provided contact numbers for both providers. Son expressed great appreciation for this worker's assistance. DC paperwork sent to [facility]. Original Note: Social Work This worker contacted about 8 DME companies for STS lifts and none carry them. NANCY spoke with [facility] that does not accept insurance, but they do carry lifts for rental or purchase, and received estimated pricing. [facility] can deliver to the pt's home and has those in stock. NANCY has made referrals to about 20 [facility] agencies, but have received denials d/t OON with insurance and staffing shortage. NANCY will continue to refer. NANCY left message with kevin, Bunny, updating on above and request return call back. NANCY to continue to follow. Justine Chun, OKSANA MAGUIRE
[2022-10-16 10:00] VITALS: PULSE 90; RESP 18; O2SAT 94
[2022-10-16] MEDS: Ferrous Sulfate 325 MG Tablet PO (13:07)
--- NOTE | 2022-10-16 13:21 | PCM.PN.ID ---
Physical Exam Narrative Feeling better, no fever, no n/v/d. Minimal pain in back. Const alert and no apparent distress General Appearance: cooperative Resp normal air movement and clear to auscultation bilaterally Cardio regular rate and regular rhythm GI soft to palpation, non-tender and non-distended Skin no rashes or lesions noted ID ID: Route of nutrition/ use of supplements: [] Nutritional Intake: [] IV Site: [] Clark Catheter: [] Assessment & Plan Assessment/Plan (1) MRSA bacteremia: PLAN: Reviewed [facility] records. Bcx cleared 09/07/22. Plan is for 6 weeks iv vanc, stop date 10/19/22 with weekly labs. Lumbar MRI shows improvement. Ok for discharge off of abx and picc removal as planned with outpt followup with his spine surgeon. Will follow as needed, thank you (2) Lumbar discitis:
[2022-10-16] MEDS: 0.9% Saline Lock 10 ML Syringe IV (13:44)
[2022-10-16 16:00] VITALS: BP 121/68; PULSE 68; RESP 25; TEMP 36.8; O2SAT 93
[2022-10-16] MEDS: Donepezil HCl 10 MG Tablet PO (21:58)
[2022-10-17] MEDS: Menthol/Lanolin/Calamine/Znox 113 GM Tube 1 APPLIC TOPICAL ×2 (06:04→17:46)
[2022-10-17] MEDS: ARIPiprazole 2 MG Tablet PO (06:04)
[2022-10-17] MEDS: Acetaminophen 500 MG Tablet 1000 MG PO ×3 (06:05→20:52)
[2022-10-17] MEDS: Senna/Docusate Sodium 1 Tablet 2 TABLET PO ×2 (06:05→17:54)
[2022-10-17] MEDS: Nystatin Powder 15gm Bottle 1 APPLIC TOPICAL ×2 (06:05→17:48)
[2022-10-17] MEDS: APIXABAN 5 MG TABLET PO ×2 (06:05→17:47)
[2022-10-17] MEDS: Lisinopril 20 MG Tablet PO (06:06)
[2022-10-17] MEDS: Cholecalciferol (VIT D3) 25 MCG TABLET (1,000 UNITS) PO (06:06)
[2022-10-17] MEDS: Multivitamins,Therapeutic Tablet 1 TABLET PO (08:20)
[2022-10-17] MEDS: Ascorbic Acid 500 MG Tablet 1000 MG PO (08:20)
[2022-10-17] MEDS: 0.9% Saline Lock 10 ML Syringe IV (13:30)
[2022-10-17] MEDS: Ferrous Sulfate 325 MG Tablet PO (13:30)
[2022-10-17 16:00] VITALS: BP 106/60; PULSE 91; RESP 20; TEMP 37.1; O2SAT 93
[2022-10-17] MEDS: Donepezil HCl 10 MG Tablet PO (20:52)
[2022-10-18] MEDS: ARIPiprazole 2 MG Tablet PO (05:31)
[2022-10-18] MEDS: Acetaminophen 500 MG Tablet 1000 MG PO ×3 (05:31→19:59)
[2022-10-18] MEDS: Senna/Docusate Sodium 1 Tablet 2 TABLET PO ×2 (05:31→17:14)
[2022-10-18] MEDS: Cholecalciferol (VIT D3) 25 MCG TABLET (1,000 UNITS) PO (05:31)
[2022-10-18] MEDS: Lisinopril 20 MG Tablet PO (05:31)
[2022-10-18] MEDS: Nystatin Powder 15gm Bottle 1 APPLIC TOPICAL ×2 (05:32→17:13)
[2022-10-18] MEDS: Menthol/Lanolin/Calamine/Znox 113 GM Tube 1 APPLIC TOPICAL ×2 (05:32→17:13)
[2022-10-18] MEDS: APIXABAN 5 MG TABLET PO ×2 (05:32→17:14)
[2022-10-18 05:38] VITALS: BP 114/63; TEMP 33.8
[2022-10-18] MEDS: Multivitamins,Therapeutic Tablet 1 TABLET PO (08:50)
[2022-10-18] MEDS: Ascorbic Acid 500 MG Tablet 1000 MG PO (08:50)
[2022-10-18] MEDS: traMADol 50 MG Tablet PO ×2 (08:55→19:58)
[2022-10-18] MEDS: Ferrous Sulfate 325 MG Tablet PO (13:30)
[2022-10-18] MEDS: 0.9% Saline Lock 10 ML Syringe IV (13:31)
[2022-10-18 14:59] VITALS: BP 111/56; PULSE 82; RESP 16; TEMP 36.2; O2SAT 94
[2022-10-18] MEDS: Donepezil HCl 10 MG Tablet PO (20:00)
[2022-10-19 05:54] LABS: Absolute Lymphocyte Count 1.79 X10^3/uL (0.83-4.51); Absolute Neutrophil Count 3.6 X10^3/uL (2.0-7.7); Basophil# 0.11 X10^3/uL; Basophil% 1.7 % (0-1); Eosinophils% 4.7 % (0-5); Hematocrit 31.3 % (40-54); Hemoglobin 9.9 g/dL (13.0-16.5); Lymphocyte # 1.79 X10^3/ul (0.83-4.51); Lymphocyte % 27.8 % (19-41); Mean Corp Hgb Conc 31.6 g/dL (32-36); Mean Corpuscular Hgb 31.4 pg (27.0-32.0); Mean Corpuscular Volume 99.4 fL (80-94); Mean Platelet Vol. 8.5 fl (6.2-12.0); Monocyte# 0.61 X10^3/uL; Monocyte% 9.5 % (0-10); NRBC Flagged by Analyzer 0 % (0-5); Neutrophil # 3.61 X10^3/uL (2.7-7.7); Platelet Count 325 K/mm3 (150-450); RBC Distribution Width SD 58.3 fl (35.1-43.9); Red Blood Count 3.15 M/mm3 (4.6-6.2); White Blood Count 6.4 K/mm3 (4.4-11.0)
[2022-10-19] MEDS: Acetaminophen 500 MG Tablet 1000 MG PO ×3 (06:06→21:27)
[2022-10-19] MEDS: Nystatin Powder 15gm Bottle 1 APPLIC TOPICAL ×2 (06:07→17:44)
[2022-10-19] MEDS: Senna/Docusate Sodium 1 Tablet 2 TABLET PO ×2 (06:07→17:43)
[2022-10-19] MEDS: Cholecalciferol (VIT D3) 25 MCG TABLET (1,000 UNITS) PO (06:07)
[2022-10-19] MEDS: APIXABAN 5 MG TABLET PO ×2 (06:07→17:43)
[2022-10-19] MEDS: ARIPiprazole 2 MG Tablet PO (06:07)
[2022-10-19] MEDS: Lisinopril 20 MG Tablet PO (06:07)
[2022-10-19] MEDS: 0.9% Saline Lock 10 ML Syringe IV ×2 (06:08→13:50)
[2022-10-19] MEDS: Menthol/Lanolin/Calamine/Znox 113 GM Tube 1 APPLIC TOPICAL ×2 (06:08→17:43)
[2022-10-19 06:18] VITALS: BP 140/79; PULSE 89
[2022-10-19 06:38] LABS: ALB/GLOB Ratio 0.6 RATIO (0.9-2.4); AST(SGOT) 22 U/L (15-37); Alanine Aminotransfer ALT/SGPT 28 U/L (16-61); Albumin, Serum 2.5 g/dL (3.2-5.0); Alkaline Phosphatase 132 U/L (45-117); Anion Gap 4 (5-15); BUN 18 mg/dL (7-18); Calcium,Total 8.6 mg/dL (8.5-10.1); Chloride 105 mmol/L (98-107); Creatinine, Serum 0.54 mg/dL (0.70-1.30); EST Glomerular Filtration Rate 153 mL/min (>60); Est Glom Filt Rate - Afr Amer 185 mL/min (>60); Estimated Creatinine Clearance 62.51 ml/min; Globulin 4.4 g/dL (2.2-4.2); Glucose 86 mg/dL (74-106); Potassium 4.1 mmol/L (3.5-5.1); Protein, Total 6.9 g/dL (6.4-8.2); Sodium Level 139 mmol/L (136-145)
[2022-10-19 06:46] LABS: Erythrocyte Sedimentation Rate 47 mm/hr (0-20)
[2022-10-19] MEDS: Ascorbic Acid 500 MG Tablet 1000 MG PO (08:53)
[2022-10-19] MEDS: Multivitamins,Therapeutic Tablet 1 TABLET PO (08:53)
[2022-10-19] MEDS: Ferrous Sulfate 325 MG Tablet PO (13:44)
[2022-10-19 13:47] VITALS: BP 116/58; PULSE 90; RESP 16; TEMP 36.4; O2SAT 94
[2022-10-19] MEDS: Donepezil HCl 10 MG Tablet PO (21:27)
[2022-10-19 22:00] VITALS: PULSE 68; RESP 18; O2SAT 98
[2022-10-20] MEDS: Senna/Docusate Sodium 1 Tablet 2 TABLET PO (05:18)
[2022-10-20] MEDS: APIXABAN 5 MG TABLET PO (05:18)
[2022-10-20] MEDS: Lisinopril 20 MG Tablet PO (05:19)
[2022-10-20] MEDS: Acetaminophen 500 MG Tablet 1000 MG PO (05:19)
[2022-10-20] MEDS: Menthol/Lanolin/Calamine/Znox 113 GM Tube 1 APPLIC TOPICAL (05:19)
[2022-10-20] MEDS: Nystatin Powder 15gm Bottle 1 APPLIC TOPICAL (05:19)
[2022-10-20] MEDS: Cholecalciferol (VIT D3) 25 MCG TABLET (1,000 UNITS) PO (05:19)
[2022-10-20] MEDS: ARIPiprazole 2 MG Tablet PO (05:19)
[2022-10-20 05:26] VITALS: BP 116/68; RESP 84
[2022-10-20] MEDS: Ascorbic Acid 500 MG Tablet 1000 MG PO (08:13)
[2022-10-20] MEDS: Multivitamins,Therapeutic Tablet 1 TABLET PO (08:14)
[2022-10-20 12:10] VITALS: BP 150/79; PULSE 102; RESP 18; TEMP 37; O2SAT 94
== END 2022-10-20 12:10 | disposition home health service (06) | DRG 539 ==
PROVIDERS: Internal Medicine; Internal Medicine Infectious Disease; Admitting Provider Family Medicine Geriatric Medicine; PCP Family Medicine; Visit Provider Family Medicine Geriatric Medicine
DX: M46.36 Infection of intervertebral disc (pyogenic), lumbar region (principal); I26.99 Other pulmonary embolism without acute cor pulmonale; R78.81 Bacteremia; G71.00 Muscular dystrophy, unspecified; G30.9 Alzheimer's disease, unspecified; F02.80 Dementia in other diseases classified elsewhere, unspecified severity, without behavioral disturbance, psychotic disturbance, mood disturbance, and anxiety; B35.4 Tinea corporis; D50.9 Iron deficiency anemia, unspecified; I10 Essential (primary) hypertension; E78.5 Hyperlipidemia, unspecified; E55.9 Vitamin D deficiency, unspecified; M46.46 Discitis, unspecified, lumbar region; B95.62 Methicillin resistant Staphylococcus aureus infection as the cause of diseases classified elsewhere; Z86.711 Personal history of pulmonary embolism; Z87.891 Personal history of nicotine dependence; Z79.899 Other long term (current) drug therapy; Z23 Encounter for immunization; T82.868D Thrombosis due to vascular prosthetic devices, implants and grafts, subsequent encounter; Y82.8 Other medical devices associated with adverse incidents
CPT/HCPCS: 36415; 72110; 80048; 80053; 80202; 82565; 85014; 85018; 85025; 85652; 87426; 87811; 90677; 92526; 92610; 97110; 97162; 97166; 97530; 97535; 97802; G0009; J2997; J7040; J7050; A4216

== ENCOUNTER → 2022-09-24 | Outpatient (CLI) | payer MEDICARE, SELFPAY ==
--- NOTE | 2022-09-24 09:29 | ECHOCS_ITS ---
Reason For Study: BACTEREMIA R/O VEGETATION Procedure This was a 2D Doppler, Color Flow transthoracic echocardiogram. The study was technically difficult. Exam performed portable in patient room. Left Ventricle Based upon the 2D echocardiographic and contrast enhanced images obtained there appears to be grossly normal left ventricular size, wall motion, and systolic function. The estimated ejection fraction is 65 %. No evidence for diastolic dysfunction. Right Ventricle Based upon the 2D echocardiographic images obtained there appears to be grossly normal right ventricular size and systolic function. Atria Normal left atrium. The right atrium is not well visualized. No doppler evidence for ASD. Mitral Valve There is no mitral annular calcification. The mitral valve chordae are thickened and/or calcified. Trivial mitral valve insufficiency. Tricuspid Valve Normal tricuspid valve. Trivial tricuspid valve insufficiency. Unable to estimate RV systolic pressure/pulmonary artery pressure due to technically difficult study. Aortic Valve The aortic valve is not well visualized. Pulmonic Valve The pulmonic valve is not well visualized. Great Vessels Normal sized aortic root. Pericardium/Pleural No pericardial effusion. Medication Diluted definity 1.5ml given slow IV push to enhance endocardial definition. MMode/2D Measurements & Calculations LVIDd: 4.7 cm IVSd: 1.0 cm Ao root diam: 3.5 cm LVIDs: 3.2 cm LVPWd: 0.92 cm FS: 32.5 % LAV(MOD-bp): 22.9 ml LVAd ap4: 28.4 cm2 SV(MOD-sp4): 63.6 ml LAV(MOD-sp2): 20.4 ml LVLd ap4: 7.2 cm LAV(MOD-sp4): 20.9 ml EDV(MOD-sp4): 90.2 ml EDV(sp4-el): 95.3 ml LVAs ap4: 13.2 cm2 LVLs ap4: 5.6 cm ESV(MOD-sp4): 26.6 ml ESV(sp4-el): 26.4 ml EF(MOD-sp4): 70.5 % EF(sp4-el): 72.3 % SV(sp4-el): 68.9 ml LA A4 area: 10.8 cm2 LA dimension(2D): 2.8 cm Time Measurements MV dec time: 0.25 sec Doppler Measurements & Calculations MV E max jacques: 58.7 cm/sec Lat Peak E' Jacques: 8.6 cm/sec Med Peak E' Jacques: 8.9 cm/sec MV A max jacques: 72.4 cm/sec E/E' lat: 6.8 E/E' med: 6.6 MV E/A: 0.81 Ao V2 max: 103.5 cm/sec LV V1 max: 97.5 cm/sec PA V2 max: 83.6 cm/sec Ao max P.3 mmHg LV V1 max P.8 mmHg ECHO/Echo Complete W/ Contrast Interpretation Summary The study was technically difficult. Based upon the 2D echocardiographic and contrast enhanced images obtained there appears to be grossly normal left ventricular size, wall motion, and systolic function. The estimated ejection fraction is 65 %. The mitral valve chordae are thickened and/or calcified. Trivial mitral valve insufficiency. Trivial tricuspid valve insufficiency. Unable to estimate RV systolic pressure/pulmonary artery pressure due to techni [place] difficult study. No evidence for diastolic dysfunction. Comment: Based upon the 2D echocardiographic images obtained no obvious echocar diographic findings considered compatible with vegetations compatible with infectious endocarditis are appreciated. Consider further evaluation with transesophageal echocardiogram if clinically i ndicated. Ordering Physician: Rosendo Rebolledo Chi Referring Physician: ROSENDO REBOLLEDO Performed By: Gricelda Mccurdy RDCS
--- NOTE | 2022-09-24 09:30 | VDUE_ITS ---
Reason For Study: swelling Right Proximal Right jugular vein is spontaneous, widely patent, phasic, with no intraluminal echogenicity noted. Right subclavian vein is spontaneous, widely patent, phasic, with no intraluminal echogenicity noted. Right Lower Arm Right radial vein is compressible. Right ulnar vein is compressible. Right Arm Right axillary vein is spontaneous, patent, phasic, competent, compressible and demonstrates augmentation. Right brachial vein is compressible. Right cephalic vein is compressible. PICC line noted in the cephalic vein. Right basilic vein is compressible. Prelim given to nursing staff. VL/Venous Duplex US, Unilateral Interpretation Summary Deep veins of the right upper extremity are patent and compressible segmentally . There is no evidence of deep vein thrombosis. The superficial veins of the right upper extr emity, the basilic and cephalic veins, are patent and compressible. There is no evidence of right upper extremity superficial thrombophlebitis involving the veins imaged. A PICC line is noted i n the right cephalic vein. Ordering Physician: Rosendo Rebolledo Chi Performed By: Nelson Márquez RVT ???
== END | disposition home or self-care (01) ==
PROVIDERS: PCP Family Medicine Geriatric Medicine; Visit Provider Family Medicine Geriatric Medicine
DX: R22.31 Localized swelling, mass and lump, right upper limb (principal); A41.02 Sepsis due to Methicillin resistant Staphylococcus aureus
CPT/HCPCS: 93306; 93971; Q9957; A4216; C8929

== ENCOUNTER → 2022-09-28 | Outpatient (CLI) | payer MEDICARE, SELFPAY ==
--- NOTE | 2022-09-28 15:24 | CT_ITS ---
EXAM: CT ABDOMEN AND PELVIS WITH INTRAVENOUS CONTRAST CLINICAL INDICATION: MYOSITIS TECHNIQUE: Helically acquired images were obtained of the abdomen and pelvis with intravenous contrast. This CT exam was performed using one or more of the following dose reduction techniques: automated exposure control, adjustment of the mA and/or kV according to patient size, and/or use of iterative reconstruction technique. This report was created using [employer] report generation technology. CONTRAST: IV 100mL Isovue-370 COMPARISON: None. FINDINGS: LOWER THORAX: There is mild bibasilar consolidation which may represent atelectasis or early pneumonia. No cardiomegaly. No significant pericardial effusion. ABDOMEN: LIVER: Unremarkable. Homogeneous. No focal mass. GALLBLADDER AND BILE DUCTS: Unremarkable. No calcified gallstones. No gallbladder distention or wall edema. No intra- or extrahepatic biliary ductal dilation. PANCREAS: Unremarkable. No focal cystic or solid mass. SPLEEN: Unremarkable. Normal size without focal cystic or solid mass. ADRENALS: Unremarkable. No nodules. KIDNEYS AND URETERS: Unremarkable. Normal renal size and position. No hydronephrosis. STOMACH AND BOWEL: Unremarkable. No stomach or bowel distention. No focal inflammatory change. PELVIS: APPENDIX: No evidence of acute appendicitis. BLADDER: Unremarkable. REPRODUCTIVE: There are prostate calcifications. ABDOMEN and PELVIS: INTRAPERITONEAL SPACE: Unremarkable. No ascites or other fluid collection. No free air. BONES/JOINTS: There is beam hardening artifact from a right hip prosthesis. No suspicious lytic or blastic abnormality. SOFT TISSUES: Unremarkable. No discrete abdominal or pelvic wall hernia. VASCULATURE: Unremarkable. Abdominal aorta is non-dilated. LYMPH NODES: Unremarkable. No enlarged lymph nodes. CT/Abdomen/Pelvis W IV Cont ONLY IMPRESSION: Bibasilar consolidation which may represent atelectasis or pneumonia. There are no acute abnormalities in the abdomen or pelvis. Electronically Signed: Hipolito Darling MD at 21:00 [facility] ,
== END | disposition home or self-care (01) ==
LOC: CT 15:09
PROVIDERS: PCP Family Medicine Geriatric Medicine; Visit Provider Internal Medicine Infectious Disease
DX: M60.9 Myositis, unspecified (principal)
CPT/HCPCS: 74177; Q9967

== ENCOUNTER → 2022-10-14 | Outpatient (CLI) | payer MEDICARE, SELFPAY ==
--- NOTE | 2022-10-14 16:10 | MRI_ITS ---
INDIC INDICATION: LUMBAR OSTEOMYELITIS EXAMINATION: MRI - MR Spine Lumbar WO/W Contrast TECHNIQUE: Multiplanar and multisequence MR images of the lumbar spine. IV Contrast Dosage and Agent: None. COMPARISON: None. FINDINGS: VERTEBRAE: Vertebral body heights are preserved. Normal vertebral bodies and posterior elements. VERTEBRAL ALIGNMENT: No spondylolisthesis. There is preservation of the normal lumbar lordosis. CORD: Normal position and signal intensity of the conus medullaris. L1/L2: Normal disc height and morphology. Normal spinal canal, lateral recesses and neuroforamina. L2/L3: Endplate spondylosis. Decreased disc height and circumferential disc bulge. Degenerative changes of the bilateral facet joints. Severe narrowing of the central canal and bilateral intervertebral neural foramina. L3/L4, L4/L5: Endplate spondylosis. Short pedicles. Decreased disc height and small circumferential disc bulge. Degenerative changes of the bilateral facet joints. Mild narrowing of the central canal and bilateral intervertebral neural foramina. L5/S1: Endplate spondylosis. Decreased disc height and small circumferential disc bulge. Degenerative changes of the bilateral facet joints. Mild narrowing of the central canal and moderate narrowing of the bilateral intervertebral neural foramina. SOFT TISSUES: Unremarkable. MRI/Spine Lumbar W/WO Contrast IMPRESSION: Multilevel degenerative changes in the lumbar spine as described above most severe at L3-4 and L4-5. Electronically Signed: Allie Greene MD at 3:25 EDT ,
== END | disposition home or self-care (01) ==
LOC: MRI 14:58
PROVIDERS: PCP Family Medicine Geriatric Medicine; Referring Provider Internal Medicine Infectious Disease; Visit Provider Internal Medicine Infectious Disease
DX: M46.46 Discitis, unspecified, lumbar region (principal)
CPT/HCPCS: 72158; A9575; A4216